=== PATIENT | male | born 1955 | race Caucasian/White ===

== ENCOUNTER → 2021-09-16 | Outpatient (CLI) | payer OTHER, SELFPAY ==
--- NOTE | 2021-09-16 16:52 | CT_ITS ---
STUDY: LOW DOSE CT LUNG CANCER SCREENING REASON FOR EXAM: Male, 66 years old. Current smoker, 1 pack per day x52 years, history of cough and hypertension RADIATION DOSAGE (If Supplied By Facility): CTDIvol = ( 3.02 ) mGy, DLP = ( 111.36 ) mGycm TECHNIQUE: No contrast was administered. Low dose technique was utilized (average mAS-38 and kVp 120). 1.25 mm axial source images with a slice interval of 1.25-mm were reconstructed in lung windows. 2.5 mm axial source images with a slice interval of 2.5-mm were reconstructed in lung windows. 5.0 mm axial source images with a slice interval of 5.0-mm were reconstructed in soft tissue windows. COMPARISON: None. FINDINGS: The lung windows show underlying emphysema with bleb formation in both lung bazzi. Nonspecific pleural thickening noted in both apices. 2 separate subpleural nodules noted in the lateral left lower lobe each measuring approximately 4 mm and are seen on image 216. There is a similar sized 4 mm subpleural nodule in the right lower lobe on axial image 180. There is a noncalcified 7.5 mm nodule in the right middle lobe on axial image 113. Further evaluation with PET/CT or tissue sampling recommended. Soft tissue windows show normal-appearing thyroid gland. There are scattered subcentimeter axillary and mediastinal lymph nodes, no suspicious bulky adenopathy noted. No pleural or pericardial effusions, there are calcified coronary vessels. Bony structures show degenerative change. Limited cuts through the upper abdomen do not show any suspicious abnormality. CT/Low Dose CT Lung Screening IMPRESSION: Lung-RADS category 4X - Chest CT with or without contrast, PET/CT and/or tissue sampling can be obtained depending on the probability of malignancy and comorbidities. IMPORTANT NOTES FOR USE: ACR Lung-RADS Version 1.1 Assessment Categories Release Date: 2018 Category: Coded 0-4 bases on nodule(s) with highest degree of suspicion. Negative screen is defined as categories 1 and 2; a positive screen is defined as categories 3 and 4. Category 3 and 4A nodules that are unchanged on interval CT should be coded as category 2, and individuals returned to screening in 12 months. Category 4X: Category 3 or 4 nodules with additional imaging findings that increase the suspicion of lung cancer, such as spiculation, GGN that doubles in size in 1 year, enlarged lymph notes, etc. Category Modifiers: S (significant finding unrelated to lung cancer) Electronically Signed: Tobias Diop MD at 8:12 EDT ,
--- NOTE | 2021-09-16 16:53 | CT_ITS ---
EXAM: CT NECK WITH INTRAVENOUS CONTRAST CLINICAL INDICATION: ENLARGED LYMPH NODE Technologist Notes ENLARGED LYMPH NODE LT SIDE OF NECK, AOI MARKED WITH BB, CURRENT SMOKER, MELANOMA ON BACK TECHNIQUE: Helically acquired images were obtained of the neck with intravenous contrast. This CT exam was performed using one or more of the following dose reduction techniques: automated exposure control, adjustment of the mA and/or kV according to patient size, and/or use of iterative reconstruction technique. This report was created using [employer] report [employer] technology. CONTRAST: IV 100mL Isovue-300 RADIATION DOSE: CTDIvol = 16.26 mGy, DLP = 901.83 mGy-cm COMPARISON: None. FINDINGS: NASOPHARYNX: Unremarkable. SUPRAHYOID NECK: Unremarkable. Oropharynx, oral cavity, parapharyngeal space and retropharyngeal space are unremarkable. INFRAHYOID NECK: Unremarkable. The larynx, hypopharynx and supraglottis are unremarkable. SUBMANDIBULAR/PAROTID GLANDS: At the level of the marker, there is a 22 mm enhancing nodule within the left parotid gland. It is difficult to exclude underlying mass (neoplasm) within the parotid gland. THYROID: Unremarkable. No enlarged or calcified nodules. SINUSES: There is sinus disease. BONES/JOINTS: Degenerative changes of the mandibular condyles. There are degenerative findings of the cervical spine. No acute fracture. SOFT TISSUES: Unremarkable. VASCULATURE: No acute findings. LYMPH NODES: Unremarkable. No lymphadenopathy. LUNG APICES: There are scattered blebs and bullae. This can be seen in pulmonary emphysema. CT/Soft Tissue Neck WITH Contrast IMPRESSION: At the level of the marker, there is a 22 mm enhancing nodule within the left parotid gland. It is difficult to exclude underlying mass (neoplasm) within the parotid gland. Electronically Signed: Joao Bajwa MD at 18:25 EDT ,
[2021-09-16 17:25] LABS: CREATININE FINGERSTICK < 0.9 mg/dL (0.70-1.30); EGFR FINGERSTICK > 60.0000 mL/min (>60)
== END | disposition home or self-care (01) ==
LOC: CT 16:50
PROVIDERS: PCP Nurse Practitioner Family; Referring Provider Nurse Practitioner Family; Visit Provider Nurse Practitioner Family
DX: R59.9 Enlarged lymph nodes, unspecified (principal); R05.9 Cough, unspecified; I10 Essential (primary) hypertension; Z87.891 Personal history of nicotine dependence
CPT/HCPCS: 70491; 71271; Q9967

== ENCOUNTER → 2021-09-24 | Outpatient (CLI) | payer OTHER, SELFPAY ==
--- NOTE | 2021-09-24 16:15 | PET_ITS ---
EXAMINATION: FDG PET/CT ? INDICATIONS: 66-year-old male with a history of pulmonary nodularity. ? COMPARISON EXAMINATION: ? INDEX LESION SIZE SUV INTERPRETATION Left lateral neck, level IIA 22.8 mm 11.0 Fulfills quantitative criteria for viable neoplasm with single point technique, correlation with histopathologic analysis may be indicated. ? TECHNIQUE: Following the intravenous administration of 13.32 mCi of F-18 deoxyglucose via the left antecubital fossa, multiplanar image acquisitions of the neck, chest, abdomen and pelvis to the level of the midthigh, obtained at one-hour post radiopharmaceutical administration reveal: ? SERUM GLUCOSE LEVEL:? 98?mg/dL HEIGHT:?? 70 inches? WEIGHT:?? 165 lbs ? FINDINGS: ? HEAD/NECK:? There is focal increased radiopharmaceutical concentration identified in the left lateral neck involving level IIA. The calculated maximum standard uptake value is 11.0. The maximal axial diameter of the metabolic, morphologic abnormality is 22.8 mm. ? The visualized portion of the cerebral cortical-subcortical structures demonstrate symmetric and preserved glucose metabolism. ? CHEST:? There is no quantitative scintigraphic evidence of abnormal increased glucose metabolism within the context of the bilateral hemithorax pulmonary parenchyma, right and left hemithorax at the pleural interface, mediastinal structures, and left-right thoracic perihilum. ? Pertinent chest CT findings are as follows: A noncalcified parenchymal density defined in the right mid anterior lung zone reveals no evidence of increased glucose metabolism. Extensive coronary arterial calcification is defined. Atherosclerotic calcification is noted in the thoracic aorta without aneurysm, dilatation. Right and left axillary soft tissue densities with fatty hilus are non-glucose avid. ? ABDOMEN/PELVIS:? Normal physiologic distribution of the radiopharmaceutical is identified in the hepatic (3.1) and splenic parenchyma, both renal units, urinary bladder, and visualized intestinal tract. ? Review of CT of the abdomen and pelvis reveals the following: Atherosclerotic calcification is defined in the abdominal aorta without evidence of aneurysm formation. Abdominal and pelvic arterial calcification is observed. Colonic diverticulosis is defined without evidence of diverticulitis. Bilateral inguinal soft tissue densities, the majority of which express fatty hilus, are non-glucose avid. Calcification is defined in the base of the prostate gland to the right of midline. ? SKELETAL:? An increase in glucose metabolism is identified in the 2nd lumbar vertebra to the left of the midline associated with osteophyte formation consistent with activated leukocytes associated with degenerative arthritis. No other scintigraphic abnormalities are defined. ? Additional degenerative changes defined in the thoracic and lumbar spine demonstrate no evidence of increased glucose metabolism. ? PET/PET/CT Tumor Base -Thigh Init IMPRESSION: 1. The increase in glucose metabolism identified in the left lateral neck may warrant histopathologic investigation secondary to the quantitative degree of uptake. 2. The non-calcified parenchymal density noted in the right lower lung, anteriorly demonstrates no evidence of increased glucose metabolism. 3.? Metabolic-morphologic stability may be ensured in the right lung abnormality with repeat FDG PET/CT imaging in 3-6 months, if clinically indicated. Electronic Signature Yony Ward D.O. Accurate Quantification of SUVs for this report are calculated using the exclusive [employer]. (U.S. Patent No. [id number] [id number]). Standardization and correction of the FDG SUV metric via [employer] technology allow for vendor non-specific objective quantitative examination comparison and optimization of the sensitivity and specificity of the FDG PET-CT examination. Electronically Signed: Yony Ward, at 19:28 EDT ,
== END | disposition home or self-care (01) ==
LOC: ONC 16:12
PROVIDERS: PCP Nurse Practitioner Family; Referring Provider Nurse Practitioner Family; Visit Provider Nurse Practitioner Family
DX: R91.1 Solitary pulmonary nodule (principal); C43.9 Malignant melanoma of skin, unspecified; F17.210 Nicotine dependence, cigarettes, uncomplicated; R93.89 Abnormal findings on diagnostic imaging of other specified body structures
CPT/HCPCS: 78815; A9552

== ENCOUNTER 2024-03-21 00:02 | Inpatient (IN) | payer OTHER, SELFPAY ==
[2024-03-21] VITALS (16 sets, daily range): BP systolic 111–132; BP diastolic 63–83; PULSE 76–102; RESP 15–26; TEMP 36.4–37.1; O2SAT 84–94; BMI 27.5
--- NOTE | 2024-03-21 00:47 | RAD_ITS ---
PROCEDURE: CHEST 1 VIEW (PORTABLE) REASON FOR EXAM: Pain. Injury. TECHNIQUE: Frontal view of the chest. COMPARISON: CT chest from 09/16/2021. FINDINGS: Cardiac size and pulmonary vasculature are within normal limits. No consolidation, pleural effusion, or pneumothorax is present. RAD/Chest 1 View (Portable) IMPRESSION: No acute cardiopulmonary process. Reading Location: [facility]
[2024-03-21 00:59] LABS: Absolute Lymphocyte Count 0.67 X10^3/uL (0.83-4.51); Absolute Neutrophil Count 5.8 X10^3/uL (2.0-7.7); Basophil# 0.05 X10^3/uL; Basophil% 0.7 % (0-1); Eosinophil# 0.01 X10^3/uL; Eosinophils% 0.1 % (0-5); Hemoglobin 15.2 g/dL (13.0-16.5); Lymphocyte # 0.67 X10^3/ul (0.83-4.51); Mean Corp Hgb Conc 33.8 g/dL (32-36); Mean Corpuscular Volume 85.7 fL (80-94); Mean Platelet Vol. 10.6 fl (6.2-12.0); Monocyte# 0.92 X10^3/uL; Monocyte% 12.3 % (0-10); NRBC Flagged by Analyzer 0 % (0-5); Neutrophil # 5.77 X10^3/uL (2.7-7.7); Neutrophil % 77.5 % (47-70); Platelet Count 233 K/mm3 (150-450); RBC Distribution Width CV 14.2 % (11.6-14.6); RBC Distribution Width SD 44.1 fl (35.1-43.9); Red Blood Count 5.25 M/mm3 (4.6-6.2); White Blood Count 7.5 K/mm3 (4.4-11.0)
[2024-03-21] MEDS: Albuterol 2.5 MG/3 ML VIAL.NEB. INHALATION ×2 (01:02→19:32)
[2024-03-21] MEDS: Ipratropium/Albuterol Sulfate 3 ML AMPUL.NEB INHALATION ×3 (01:02→14:45)
[2024-03-21] MEDS: Ondansetron 4 MG/2 ML Vial IV (01:11)
[2024-03-21] MEDS: Morphine 4 MG/ML Syringe IV (01:11)
[2024-03-21] MEDS: 0.9% Normal Saline (1000mL) 1,000 ML 999 ML IV (01:11)
[2024-03-21] MEDS: MethylPREDNISolone 125 MG/2 ML Vial IV (01:11)
[2024-03-21 01:28] LABS: Anion Gap 9 (5-15); BUN 22 mg/dL (7-18); BUN/Creat Ratio 17.2 RATIO (10-20); Calcium,Total 8.7 mg/dL (8.5-10.1); Chloride 104 mmol/L (98-107); Creatinine, Serum 1.28 mg/dL (0.70-1.30); EST Glomerular Filtration Rate 59 mL/min (>60); Est Glom Filt Rate - Afr Amer 72 mL/min (>60); Estimated Creatinine Clearance 56.24 ml/min; Glucose 133 mg/dL (74-106); Magnesium 1.9 mg/dL (1.6-2.6); Potassium 3.6 mmol/L (3.5-5.1); Sodium Level 137 mmol/L (136-145)
--- NOTE | 2024-03-21 01:29 | CPS ---
[0102] x1 Albuterol given to pt. in ER as well
--- NOTE | 2024-03-21 03:39 | PCM.HP.STD ---
HPI - General General Date of Admission: 03/21/24 Date of Service: 03/21/24 Chief Complaint: Dyspnea, coughing, wheezing. HPI Narrative The patient is a 68-year-old male with past medical history hypertension, hyperlipidemia, JUANY not using PAP therapy, COPD with ongoing tobacco use who presents to the [facility] ED on 03/21/24 with 2 days of progressive fever, chills, headache, fatigue, malaise, body aches, cough and dyspnea as well as wheezing progressively worsening prompting eventual ED evaluation to be cautious. He notes that he has a grandchild who is recently been ill with a similar viral illness. He continues to smoke approximately 1 pack/day cigarette tobacco usage. Workup in the ED included T98.7, heart rate 102, BP 131/77, respiratory rate 26, 88% on room air initially eventually desaturating down to 88% on 3 L improving to 92% on 4 L nasal cannula with most recent repeat vital signs T98.4 Oral, BP 115/83, respiratory rate 16, 92% on 4 L nasal cannula, CBC with WBC 7.5, hemoglobin 15.2, platelet 233 with lymphopenia, BMP with BUN/creatinine 22/1.28, GFR 59, glucose 133, magnesium 1.9, chest x-ray with no acute cardiopulmonary findings, rapid SARS COVID/influenza/RSV with positive influenza A. In the ED patient ministered 1 L normal saline, DuoNeb and albuterol therapies, Tamiflu 75 mg p.o. x 1, Zofran 4 mg IV x 1, morphine 4 mg IV x 1 and Solu-Medrol 125 mg IV x 1. [facility] Medical History (Updated 03/21/24 @ 04:[address] Lisbet Baker MD) Tobacco use Hyperlipidemia Hypertension Sleep apnea COPD (chronic obstructive pulmonary disease) Home Medications ?Medication ?Instructions ?Recorded ?Last Taken ?Type albuterol 90 mcg/actuation aerosol 90 mcg inhalation Q6H PRN 03/21/24 Unknown History inhaler aspirin 81 mg chewable tablet 1 tab PO DAILY 03/21/24 Unknown History budesonide 160 mcg-glycopyr 9 2 inh inhalation BID 03/21/24 Unknown History mcg-formot 4.8 mcg/actuation HFA inhaler (Breztri Aerosphere) guaifenesin 600 mg tablet, 600 mg PO BID PRN cough 03/21/24 Unknown History extended release 12 hr losartan 100 mg tablet (Cozaar) 100 mg PO DAILY 03/21/24 Unknown History omeprazole 20 mg capsule,delayed 20 mg PO DAILY 03/21/24 Unknown History release simvastatin 20 mg tablet 20 mg PO QHS 03/21/24 Unknown History Allergy/AdvReac Type Severity Reaction Status Date / Time No Known Allergies Allergy Verified 03/21/24 01:16 Family History (Updated 03/21/24 @ 04:[address] Lisbet Baker MD) Mother Diabetes Father Alcoholic cirrhosis of liver Alcoholism Surgical History (Updated 03/21/24 @ 04:[address] Lisbet Baker MD) History of skin surgery History of tonsillectomy and adenoidectomy Social History (Updated 03/21/24 @ 04:[address] Lisbet Baker MD) household members: significant other Smoking Status: Current every day smoker tobacco type: cigarettes Smoking packs per day: 1 Smoking cigarettes per day: 20.0 alcohol intake: never substance use type: does not use ROS ROS Narrative Admission Review of Systems: CONSTITUTIONAL: No weight loss, + fever, chills, weakness or fatigue. HEENT: + Headache, congestion, rhinorrhea. Eyes: No visual loss, blurred vision, double vision or yellow sclerae. Ears, Nose, Throat: No hearing loss, sneezing, sore throat. SKIN: No rash or itching, lesions, wounds. CARDIOVASCULAR: No chest pain, chest pressure or chest discomfort, palpitations, edema, orthopnea, syncopal events. RESPIRATORY: + Dyspnea, cough without marked sputum production, wheezing. No hemoptysis. GASTROINTESTINAL: + Decreased appetite/anorexia. No nausea, vomiting or diarrhea, abdominal pain, melena, BRBPR. GENITOURINARY: No dysuria, frequency, urgency or retention. NEUROLOGICAL: + Headache. No dizziness, syncope, paralysis, ataxia, numbness or tingling in the extremities, focal weakness, change in bowel or bladder control, seizure. MUSCULOSKELETAL: + muscle, back pain, joint pain or stiffness. HEMATOLOGIC: No anemia, bleeding or bruising. LYMPHATICS: No enlarged nodes. No history of splenectomy. PSYCHIATRIC: No history of depression or anxiety. ENDOCRINOLOGIC: No reports of sweating, cold or heat intolerance. No polyuria or polydipsia. ALLERGIES: + History of allergic rhinitis. Vital Signs Vital Signs Vital Signs: 03/21/24 00:09 03/21/24 00:13 03/21/24 00:15 Temperature 98.7 F Temperature Source Oral Pulse Rate 102 H Respiratory Rate 26 H Respiratory Effort Short of Breath Labored Respiratory Depth Normal Respiratory Pattern Tachypnea Blood Pressure 131/77 H Blood Pressure Mean 95 Pulse Ox 88 91 Oxygen Delivery Method Room Air Nasal Cannula Nasal Cannula Oxygen Flow Rate (L/min) 3 3 03/21/24 01:02 03/21/24 02:02 03/21/24 02:49 Temperature Temperature Source Pulse Rate 96 96 96 Respiratory Rate 20 H 16 16 Respiratory Effort Respiratory Depth Respiratory Pattern Normal Blood Pressure 115/83 H Blood Pressure Mean 93 Pulse Ox 84 88 Oxygen Delivery Method Room Air Nasal Cannula Oxygen Flow Rate (L/min) 3 03/21/24 02:51 03/21/24 02:51 03/21/24 02:52 Temperature 98.4 F Temperature Source Oral Pulse Rate Respiratory Rate 16 Respiratory Effort Respiratory Depth Respiratory Pattern Blood Pressure Blood Pressure Mean Pulse Ox 90 92 Oxygen Delivery Method Nasal Cannula Nasal Cannula Oxygen Flow Rate (L/min) 3 4 Weight Weight: 191 lb 12.835 oz Body Mass Index (BMI) 27.5 Physical Exam Narrative Physical Examination: General: Awake, alert, oriented x 3 and cooperative, seated upright in the ED bed, fatigued and ill-appearing, notes feeling mildly improved since initial ED arrival with interventions. Skin: Normal color, normal turgor, no icterus, no cyanosis. HEENT: AT/NC, EOMI, PERRLA, moderately dry MM, no carotid bruits or JVD noted. Lungs: Significantly diffusely diminished, greater bases, mildly increased respiratory rate but no distress, mildly coarse with end expiratory wheezing. Heart: Regular rate and rhythm; no gallop, rub audible. Abdomen: Soft, NTTP, ND, hyperactive BS, no appreciated HSM. Extremities: No cyanosis, clubbing, or edema. Neurological: Patient awake, alert, oriented as noted, cognitive function intact; pupils equally reactive to light and accommodation, cranial nerves grossly normal, moving all 4 extremities, no focal deficits, strength moderately to severely globally decreased. Psychiatric: Affect appears flat, fatigued, ill-appearing, no acute evidence of depressive or anxiety feelings. Results Lab / Micro Data 03/21/24 00:15 03/21/24 00:15 Labs: Laboratory Results - last 24 hr 03/21/24 00:15: WBC 7.5, RBC 5.25, Hgb 15.2, Hct 45.0, MCV 85.7, MCH 29.0, MCHC 33.8, RDW Std Deviation 44.1 H, RDW Coeff of Armand 14.2, Plt Count 233, MPV 10.6, Immature Gran % (Auto) 0.400, Neut % (Auto) 77.5 H, Lymph % (Auto) 9.0 L, [place] % (Auto) 12.3 H, Eos % (Auto) 0.1, Baso % (Auto) 0.7, Absolute Neuts (auto) 5.8, Absolute Lymphs (auto) 0.67 L, Nucleated RBC % 0, Sodium 137, Potassium 3.6, Chloride 104, Carbon Dioxide 24.0, Anion Gap 9, BUN 22 H, Creatinine 1.28, Estim Creat Clear Calc 56.24, Est GFR (MDRD) Af Amer 72, Est GFR (MDRD) Non-Af 59 L, BUN/Creatinine Ratio 17.2, Glucose 133 H, Calcium 8.7, Magnesium 1.9 Micro: Microbiology 03/21/24 00:19 Mucosa - Nose SARS-CoV-2, Influenza & RSV (PCR) - Final Influenzae A Imaging Radiology Impression Chest X-Ray 03/21/24 00:47 IMPRESSION: No acute cardiopulmonary process. Reading Location: [facility] Assessment & Plan Assessment/Plan (1) Hypoxia: (2) Influenza A: PLAN: Plan The patient is a 68-year-old male with past medical history hypertension, hyperlipidemia, JUANY not using PAP therapy, COPD with ongoing tobacco use who presents to the [facility] ED on 04/11 with 2 days of progressive fatigue, malaise, cough and dyspnea as well as wheezing progressively worsening prompting eventual ED evaluation to be cautious. #1. Acute hypoxia secondary to acute influenza A complicated by acute on chronic COPD exacerbation: Will admit to [facility], maintain on oxygen with wean as tolerated to room air, continue ATC duonebs, PRN albuterol, maintain on Tamiflu and IV Solu-Medrol, HOB, IS parameters w/ pending sputum cultures, full respiratory viral panel, procalcitonin. PT/OT/case management consultation for discharge planning. #2. Possible Chronic Kidney Disease Stage III per GFR trending but uncertain as no comparison labs: Admission BUN/Cr 22/1.28, GFR 59 but no comparison labs, will continue to trend to elucidate chronicity. #3. Hyperglycemia, mild: Admission glucose 133, possibly stress response, continue to trend and may further investigate if rises/remains elevated. #4. Hypertension: Continue home regimen including losartan, PRN hydralazine. #5. Tobacco Abuse: Encouraged cessation, inpatient consultation per RT, NR if desired. #6. Hyperlipidemia: Wilkening patient on statin therapy. #7. JUANY: Not using PAP therapy. #7. DVT prophylaxis: Lovenox. #8. CODE status: Patient does not have healthcare power of criminal attorney or living will in place but notes his significant other would be his medical decision-maker if necessary. Discussed CODE status at length including difference between FULL code, DNR-CCA and DNR-CC status. Following discussions about the differences in these status, requested Full Code status. Advanced Care Planning Face to Face Time: 16 minutes. Charges/Coding Visit Charges Inpatient E&M: 20486 Init Hosp L3 Procedures Hospitalists Procedures: 27624 Advncd Care Plan 30 Min
[2024-03-21] MEDS: Oseltamivir Phosphate 75 MG Capsule PO ×3 (04:04→23:11)
--- NOTE | 2024-03-21 04:08 | EX.ED.DYSGE1 ---
HPI History of Present Illness Chief Complaint: Cough Informant: patient and EMS Narrative Narrative: Patient is a 68-year-old male with past medical history of hypertension hyperlipidemia and COPD. He states he does not typically require oxygen at baseline. He states over the last 24 hours he has had increased congestion cough headache fatigue muscle aches and shortness of breath. He does report sick contacts at home with similar symptoms. As the shortness of breath has worsened throughout the day he was concern for potential infection and therefore EMS was called to bring him in for evaluation [facility] Medical History (Updated 03/21/24 @ 04:[address] Attila Singh, DO) Tobacco use Hyperlipidemia Hypertension Sleep apnea COPD (chronic obstructive pulmonary disease) Home Medications ?Medication ?Instructions ?Recorded ?Last Taken ?Type albuterol 90 mcg/actuation aerosol 90 mcg inhalation Q6H PRN 03/21/24 Unknown History inhaler aspirin 81 mg chewable tablet 1 tab PO DAILY 03/21/24 Unknown History budesonide 160 mcg-glycopyr 9 2 inh inhalation BID 03/21/24 Unknown History mcg-formot 4.8 mcg/actuation HFA inhaler (Breztri Aerosphere) guaifenesin 600 mg tablet, 600 mg PO BID PRN cough 03/21/24 Unknown History extended release 12 hr losartan 100 mg tablet (Cozaar) 100 mg PO DAILY 03/21/24 Unknown History omeprazole 20 mg capsule,delayed 20 mg PO DAILY 03/21/24 Unknown History release simvastatin 20 mg tablet 20 mg PO QHS 03/21/24 Unknown History Allergy/AdvReac Type Severity Reaction Status Date / Time No Known Allergies Allergy Verified 03/21/24 01:16 Family History (Updated 03/21/24 @ 04:[address] Lisbet Baker MD) Mother Diabetes Father Alcoholic cirrhosis of liver Alcoholism Surgical History (Updated 03/21/24 @ 04:[address] Lisbet Baker MD) History of skin surgery History of tonsillectomy and adenoidectomy Social History (Updated 03/21/24 @ 04:[address] Lisbet Baker MD) household members: significant other Smoking Status: Current every day smoker tobacco type: cigarettes Smoking packs per day: 1 Smoking cigarettes per day: 20.0 alcohol intake: never substance use type: does not use ROS ROS ED Constitutional Constitutional ED: Reports chills, fever(s) and subjective Eyes Eyes: Denies change in vision ENT ENT ED: Reports rhinorrhea and sore throat Cardiovascular Cardiovascular: Denies chest pain Respiratory/Chest Respiratory/Chest: Reports cough and dyspnea Gastrointestinal Gastrointestinal: Reports nausea; Denies abdominal pain, diarrhea or vomiting Genitourinary Genitourinary ED: Denies dysuria Musculoskeletal Musculoskeletal: Reports myalgias Integumentary Denies rash Neurologic Neurologic: Reports headache(s) and weakness Hematologic/Lymphatic Hematologic/Lymphatic: Denies easy bleeding or easy bruising Allergic/Immunologic Allergic/Immunologic ED: Denies mouth swelling or tongue swelling EXAM Physical Exam Const Vital Signs: 03/21/24 00:09 03/21/24 00:13 03/21/24 00:15 Temperature 98.7 F Temperature Source Oral Pulse Rate 102 H Respiratory Rate 26 H Respiratory Effort Short of Breath Labored Respiratory Depth Normal Respiratory Pattern Tachypnea Blood Pressure 131/77 H Blood Pressure Mean 95 Pulse Ox 88 91 Oxygen Delivery Method Room Air Nasal Cannula Nasal Cannula Oxygen Flow Rate (L/min) 3 3 03/21/24 01:02 03/21/24 02:02 03/21/24 02:49 Temperature Temperature Source Pulse Rate 96 96 96 Respiratory Rate 20 H 16 16 Respiratory Effort Respiratory Depth Respiratory Pattern Normal Blood Pressure 115/83 H Blood Pressure Mean 93 Pulse Ox 84 88 Oxygen Delivery Method Room Air Nasal Cannula Oxygen Flow Rate (L/min) 3 03/21/24 02:51 03/21/24 02:51 03/21/24 02:52 Temperature 98.4 F Temperature Source Oral Pulse Rate Respiratory Rate 16 Respiratory Effort Respiratory Depth Respiratory Pattern Blood Pressure Blood Pressure Mean Pulse Ox 90 92 Oxygen Delivery Method Nasal Cannula Nasal Cannula Oxygen Flow Rate (L/min) 3 4 Positive well nourished and well developed General Appearance ED: well developed; Negative for pallor HEENT HEENT Narrative: Nasal mucosa is hyperemic and boggy There is cobblestoning noted in the posterior pharynx consistent with sinus drainage without airway edema or compromise Eyes PERRL and EOMs intact bilaterally General Eye ED: Negative for scleral icterus Neck supple and no JVD Neck Narrative: No nuchal rigidity or meningeal signs Chest Wall palpation of chest normal Resp Resp Narrative: Patient is tachypneic with slight accessory muscle use Breath sounds are diminished throughout with diffuse inspiratory and expiratory wheeze and rhonchi in the bilateral bases Cardio regular rate and regular rhythm Rate: tachycardic GI normal to inspection, nondistended, normoactive bowel sounds, non-tender, non-distended and no masses Auscultation: normoactive bowel sounds Palpation: soft Extremity normal to inspection Extremity Narrative: No asymmetric edema no pitting edema negative Homans' sign bilaterally Neuro oriented x3, CN's II-XII intact bilaterally and no sensory deficits noted Sensorium / Orientation: alert Motor Exam: strength 5/5 throughout Psych mental status grossly normal Skin no rashes or lesions noted General Skin Exam: Negative for jaundice or pallor MDM MDM MDM Narrative Medical decision making narrative: Patient arrived to the ER with increased work of breathing and satting roughly 88% on room air at rest. He has a history of COPD but denies any need for supplemental oxygen. His history and exam is concerning for viral infection such as COVID versus influenza versus RSV. There is also concern for pneumonia versus pneumothorax versus pleural effusion. Patient blood work was obtained and shows no sign of acute blood loss anemia or acute kidney injury or severe electrolyte abnormality. Chest x-ray revealed no acute pathology. Viral swab was positive for influenza which correlates with his history and exposure. At rest his pulse ox dropped to 88% on room air and with ambulation he desatted to 79% on room air. His mild desaturation at rest with history of COPD and smoking is not extremely concerning but the fact that he drops with minimal ambulation to 79% and takes multiple minutes to recover is worrisome and as he is early in the disease process this will most likely worsen before it improves. Therefore I do not feel he is safe for discharge home and discussed the case with the hospitalist who agrees to accept the patient for admission at this time History & Record Review Discussion w/independent historian: EMS personnel, Patient and Family Lab Data Attestation: I reviewed the patient's lab results. Labs: Laboratory Results - last 24 hr 03/21/24 00:15 WBC 7.5 RBC 5.25 Hgb 15.2 Hct 45.0 MCV 85.7 MCH 29.0 MCHC 33.8 RDW Std Deviation 44.1 H RDW Coeff of Armand 14.2 Plt Count 233 MPV 10.6 Immature Gran % (Auto) 0.400 Neut % (Auto) 77.5 H Lymph % (Auto) 9.0 L [place] % (Auto) 12.3 H Eos % (Auto) 0.1 Baso % (Auto) 0.7 Absolute Neuts (auto) 5.8 Absolute Lymphs (auto) 0.67 L Nucleated RBC % 0 Sodium 137 Potassium 3.6 Chloride 104 Carbon Dioxide 24.0 Anion Gap 9 BUN 22 H Creatinine 1.28 Estim Creat Clear Calc 56.24 Est GFR (MDRD) Af Amer 72 Est GFR (MDRD) Non-Af 59 L BUN/Creatinine Ratio 17.2 Glucose 133 H Calcium 8.7 Magnesium 1.9 Radiography Diagnostic Testing: Clinical Impression(s) from Imaging Studies Chest X-Ray 03/21/24 00:47 IMPRESSION: No acute cardiopulmonary process. Reading Location: [facility] Chest x-ray as interpreted by the emergency medicine physician reveals no acute infiltrate pneumothorax or pleural effusion Management Discussion w/another healthcare provider: Hospitalist Discharge Plan Dx/Rx/DC Orders Clinical Impression: Hypoxia, Influenza A, COPD (chronic obstructive pulmonary disease), Hypertension, Hyperlipidemia Disposition Disposition: Acute Care Hospital [facility]
[2024-03-21] MEDS: 0.9% Normal Saline (1000mL) 1,000 ML 100 ML IV (09:36)
[2024-03-21] MEDS: Aspirin 81 MG TAB.CHEW PO (09:37)
[2024-03-21] MEDS: Losartan Potassium 100 MG Tablet PO (09:39)
[2024-03-21] MEDS: Pantoprazole Sodium 20 MG Tablet PO (09:39)
[2024-03-21] MEDS: Enoxaparin 40 MG/0.4 ML Syringe SC (09:40)
[2024-03-21 10:08] LABS: Procalcitonin 0.13 ng/mL (0.00-0.09)
--- NOTE | 2024-03-21 12:01 | PN_ITS ---
Subjective Subjective Patient seen and examined. He still complains of shortness of breath. He is wheezing. He admits to still smoking a pack daily of cigarettes. He is currently down to 3 L of oxygen from 4 L. Objective Data Objective Data Vital Signs: Vital Signs Temp Pulse Resp BP Pulse Ox O2 Del Method O2 Flow Rate 98.4 F 86 22 H 124/77 H 94 Nasal Cannula 3 03/21/24 06:48 03/21/24 10:16 03/21/24 10:16 03/21/24 06:48 03/21/24 10:16 03/21/24 10:16 03/21/24 10:16 Oxygen Flow Rate (L/min) 3 Oxygen Delivery Method Nasal Cannula Weight: 191 lb 12.835 oz Body Mass Index (BMI) 27.5 Intake & Output: Intake and Output for Last 24 Hours 03/19/24 03/20/24 03/21/24 23:59 23:59 23:59 Intake Total 1300 / 1300 Output Total 600 / 600 Balance 700 / 700 Lab / Micro Data 03/21/24 00:15 03/21/24 00:15 Labs: Laboratory Results - last 24 hr 03/21/24 00:15: WBC 7.5, RBC 5.25, Hgb 15.2, Hct 45.0, MCV 85.7, MCH 29.0, MCHC 33.8, RDW Std Deviation 44.1 H, RDW Coeff of Armand 14.2, Plt Count 233, MPV 10.6, Immature Gran % (Auto) 0.400, Neut % (Auto) 77.5 H, Lymph % (Auto) 9.0 L, [place] % (Auto) 12.3 H, Eos % (Auto) 0.1, Baso % (Auto) 0.7, Absolute Neuts (auto) 5.8, A bsolute Lymphs (auto) 0.67 L, Nucleated RBC % 0, Sodium 137, Potassium 3.6, Chloride 104, Carbon Dioxide 24.0, Anion Gap 9, BUN 22 H, Creatinine 1.28, Estim Creat Clear Calc 56.24, Est GFR (MDRD) Af Amer 72, Est GFR (MDRD) Non-Af 59 L, BUN/Creatinine Ratio 17.2, Glucose 133 H, Calcium 8.7, Magnesium 1.9 03/21/24 04:51: Procalcitonin 0.13 H Micro: Microbiology 03/21/24 04:50 Mucosa - Nose Respiratory Panel (PCR) - Final Influenza A (Subtype H3) 03/21/24 00:19 Mucosa - Nose SARS-CoV-2, Influenza & RSV (PCR) - Final Influenzae A Radiography Diagnostic Testing: Radiology Impression Chest X-Ray 03/21/24 00:47 IMPRESSION: No acute cardiopulmonary process. Reading Location: [facility] Physical Exam Const alert, oriented x3, no apparent distress and well nourished General Appearance: cooperative and well developed HEENT normocephalic, head/scalp atraumatic, moist oral mucous membranes and oropharynx normal Eyes PERRL and EOMs intact bilaterally Neck supple and no JVD Lymph Lymphatic: no lymphadenopathy noted and no lymphedema noted Resp Resp Narrative: diminished breath sounds bibasally, few bilateral crackles. No wheezing. On 3L of oxygen. Cardio regular rate, regular rhythm, S1 normal heart sound, S2 normal heart sound and no murmurs GI normal to inspection, nondistended, normoactive bowel sounds, soft to palpation, non-tender and non-distended Extremity normal capillary refill, no clubbing, cyanosis or edema and no calf tenderness General Extremity: no tenderness to palpation of joints or extremities Skin General Skin Exam: no breakdown Neuro CN's II-XII intact bilaterally, no focal motor deficits and no sensory deficits noted Motor Exam: strength 5/5 throughout and general weakness Psych thought process normal and cooperative Appearance: appropriate Assessment & Plan Assessment/Plan (1) Influenza A: (2) Hypoxia: PLAN: Plan #Acute hypoxia due to influenza A infection * Patient was on 4 L of oxygen. Currently on 3 L. On breathing treatments bronchodilators. * On Tamiflu. Also on IV Solu-Medrol due to concerns for COPD exacerbation. Titrate oxygen to maintain saturation above 90%. * #Acute COPD exacerbation: As above #Hypertension: On losartan. IV hydralazine as needed. #Nicotine dependence: Counseled to quit. Nicotine patch 21 g daily as needed #Hyperlipidemia: On statin DVT prophylaxis: Lovenox Charges/Coding Visit Charges Inpatient E&M: 31749 Subs Hosp L2
--- NOTE | 2024-03-21 16:39 | CASEMGMT ---
RN PATRICIA Assessment Face to Face with patient for initial transition planning/care coordination assessment. RN PATRICIA introduced self and role at [facility], pt voices understanding. Pt is A&Ox4 and is resting comfortably in bed and is calm. Care providers, pharmacy, and demographics verified. Admitting dx: Hypoxia, Flu A LACE Strata: 1 PCP: [facility] [place] Specialists: Dermatology and Pulmonology through the [place] Preferred Pharmacy: [facility] at time of DC. Pt states that he normally has his medications sent via Mail through the [place] Insurance: [place], [facility] Prescription Benefit: Yes, [place] LNOK: Shannan Briceño (Friend) Living Arrangements: Pt lives with his friend in a single story home with 4 steps to enter ADLs/IADLs: Reports ind Transportation: Self, friend. Denies concerns DME: BP Machine. Pulse ox. Cane. FWW. Pt is currently on additional oxygen and may qualify for new home oxygen needs. This RN CM contacted from [facility] to see if [employer] is in-network with [facility]. Awaiting return response. Pt states that he would prefer to go through [employer] if they are in-network. If not, CM to follow for potentially another DME company. New O2 through the [facility] is another option, pt is aware. However, pt smoking flags as a hazard regarding home O2. CM to follow. HHC/SNF: Denies Hx or needs Smoking: Pt states that he smokes 1 PPD of cigarettes Pt?s goal: Return home Plan: Home, follow for oxygen needs. There is no 6-click score or therapy ordered at this time. However, pt states that he is completely independent and denies HH, OP Tx, or CCN needs. Pt states that he feels safe returning home with his friend once he is medically ready. Pt denies further questions at this time. CM to follow. Leny Nobles RN, CM
--- NOTE | 2024-03-21 19:35 | CPS ---
PRN TX given, [employer] out of stock. INFORMATION SYSTEMS SECURITY OFFICER called pharmacy for refill
[2024-03-21] MEDS: Atorvastatin Calcium 10 MG Tablet PO (23:10)
[2024-03-21] MEDS: 0.9% Saline Lock 10 ML Syringe IV (23:13)
[2024-03-22] VITALS (10 sets, daily range): BP systolic 111–125; BP diastolic 56–71; PULSE 61–77; RESP 18–24; TEMP 36.4–36.6; O2SAT 93–94; BMI 27.3
[2024-03-22] MEDS: 0.9% Saline Lock 10 ML Syringe IV ×3 (05:48→20:25)
[2024-03-22 06:25] LABS: Absolute Lymphocyte Count 0.58 X10^3/uL (0.83-4.51); Basophil# 0.01 X10^3/uL; Basophil% 0.1 % (0-1); Hematocrit 43.4 % (40-54); Hemoglobin 13.8 g/dL (13.0-16.5); Lymphocyte # 0.58 X10^3/ul (0.83-4.51); Lymphocyte % 5.2 % (19-41); Mean Corp Hgb Conc 31.8 g/dL (32-36); Mean Corpuscular Hgb 28.5 pg (27.0-32.0); Mean Corpuscular Volume 89.7 fL (80-94); Mean Platelet Vol. 10.8 fl (6.2-12.0); Monocyte# 0.49 X10^3/uL; Monocyte% 4.4 % (0-10); NRBC Flagged by Analyzer 0 % (0-5); Neutrophil # 10.02 X10^3/uL (2.7-7.7); Neutrophil % 89.8 % (47-70); POSITIVE DIFFERENTIAL YES; Platelet Count 220 K/mm3 (150-450); RBC Distribution Width CV 14.2 % (11.6-14.6); RBC Distribution Width SD 46.1 fl (35.1-43.9); Red Blood Count 4.84 M/mm3 (4.6-6.2); White Blood Count 11.2 K/mm3 (4.4-11.0)
[2024-03-22 06:51] LABS: ALB/GLOB Ratio 0.8 RATIO (0.9-2.4); AST(SGOT) 29 U/L (15-37); Alanine Aminotransfer ALT/SGPT 47 U/L (16-61); Albumin, Serum 3.1 g/dL (3.2-5.0); Alkaline Phosphatase 61 U/L (45-117); Anion Gap 7 (5-15); BUN 23 mg/dL (7-18); Calcium,Total 8.9 mg/dL (8.5-10.1); Chloride 107 mmol/L (98-107); Creatinine, Serum 1.15 mg/dL (0.70-1.30); EST Glomerular Filtration Rate 67 mL/min (>60); Est Glom Filt Rate - Afr Amer 81 mL/min (>60); Globulin 3.7 g/dL (2.2-4.2); Glucose 164 mg/dL (74-106); Potassium 4.6 mmol/L (3.5-5.1); Protein, Total 6.8 g/dL (6.4-8.2); Sodium Level 138 mmol/L (136-145)
[2024-03-22] MEDS: Aspirin 81 MG TAB.CHEW PO (09:18)
[2024-03-22] MEDS: Enoxaparin 40 MG/0.4 ML Syringe SC (09:19)
[2024-03-22] MEDS: Oseltamivir Phosphate 75 MG Capsule PO ×2 (09:19→20:24)
[2024-03-22] MEDS: Losartan Potassium 100 MG Tablet PO (09:19)
[2024-03-22] MEDS: Pantoprazole Sodium 20 MG Tablet PO (09:19)
[2024-03-22] MEDS: Ipratropium/Albuterol Sulfate 3 ML AMPUL.NEB INHALATION ×2 (10:16→19:05)
--- NOTE | 2024-03-22 13:04 | CASEMGMT ---
Addendum entered by Radha Nobles 03/22/24 16:05: Pt has finished signing the VA paperwork and states that he is willing to quit smoking. Paperwork placed in pt chart for further signing by the MD. CM to follow. Original Note: from [facility] [place] states that they are in-network with the pt's insurance. MIKE CM to pt room at this time. Pt notified that [employer] is in-network with the pt's [facility] insurance plan. However, pt states that he now prefers to go through the [place] for new oxygen setup. TC to [facility] [employer] [facility] ([place] contracted DME company) at this time. CSS notified that this pt is likely to DC tomorrow with new home oxygen equipment. CSS states that they will be able to provide same day set up as long as the order is sent before 11am. Pt RN notified and to pass long for oxygen qualification documentation to be done as early as possible tomorrow morning. This RN CM provided the pt with the required VA O2 paperwork for the to sign. This paperwork includes information about smoking and potential O2 hazards. At this time, the pt states that he is willing to quit smoking to be able to have home oxygen and use it safely. Pt is currently reviewing and signing the paperwork. CM to follow.
--- NOTE | 2024-03-22 15:42 | PN_ITS ---
Subjective Subjective Patient seen and examined. He had just finished receiving breathing treatments. He said he felt better. He is down to 2L of oxygen. Review of systems is otherwise negative. He has remained hemodynamically stable. Objective Data Objective Data Vital Signs: Vital Signs Temp Pulse Resp BP Pulse Ox O2 Del Method O2 Flow Rate 97.8 F 64 18 118/71 94 Nasal Cannula 2 03/22/24 14:00 03/22/24 14:00 03/22/24 14:00 03/22/24 14:00 03/22/24 15:11 03/22/24 15:11 03/22/24 15:11 Oxygen Flow Rate (L/min) 2 Oxygen Delivery Method Nasal Cannula Weight: 190 lb 4.143 oz Body Mass Index (BMI) 27.3 Intake & Output: Intake and Output for Last 24 Hours 03/20/24 03/21/24 03/22/24 23:59 23:59 23:59 Intake Total 3220 / 3220 500 / 500 Output Total 600 / 600 Balance 2620 / 2620 500 / 500 Lab / Micro Data 03/22/24 04:57 03/22/24 04:57 Labs: Laboratory Results - last 24 hr 03/22/24 04:57: WBC 11.2 H, RBC 4.84, Hgb 13.8, Hct 43.4, MCV 89.7, MCH 28.5, M CHC 31.8 L D, RDW Std Deviation 46.1 H, RDW Coeff of Armand 14.2, Plt Count 220, MPV 10.8, Immature Gran % (Auto) 0.500, Neut % (Auto) 89.8 H, Lymph % (Auto) 5.2 L, [place] % (Auto) 4.4, Eos % (Auto) 0.0, Baso % (Auto) 0.1, Absolute Neuts (auto) 10.0 H, Absolute Lymphs (auto) 0.58 L, Nucleated RBC % 0, Sodium 138, Potassium 4.6, Chloride 107, Carbon Dioxide 24.0, Anion Gap 7, BUN 23 H, Creatinine 1.15, Estim Creat Clear Calc 62.60, Est GFR (MDRD) Af Amer 81, Est GFR (MDRD) Non-Af 67, BUN/Creatinine Ratio 20.0, Glucose 164 H, Calcium 8.9, Total Bilirubin 0.50, AST 29, ALT 47, Alkaline Phosphatase 61, Total Protein 6.8, Albumin 3.1 L, Globulin 3.7, Albumin/Globulin Ratio 0.8 L Micro: Microbiology 03/21/24 10:17 Sputum, Expectorated/Coughed Gram Stain - Final 03/21/24 10:17 Sputum, Expectorated/Coughed Respiratory Culture - Final 03/21/24 04:50 Mucosa - Nose Respiratory Panel (PCR) - Final Influenza A (Subtype H3) 03/21/24 00:19 Mucosa - Nose SARS-CoV-2, Influenza & RSV (PCR) - Final Influenzae A Physical Exam Const alert, oriented x3, no apparent distress and well nourished General Appearance: cooperative and well developed HEENT normocephalic, head/scalp atraumatic, moist oral mucous membranes and oropharynx normal Eyes PERRL and EOMs intact bilaterally Neck supple and no JVD Lymph Lymphatic: no lymphadenopathy noted and no lymphedema noted Resp Resp Narrative: diminished breath sounds bibasally, few bilateral crackles. No wheezing. On2 3L of oxygen. Cardio regular rate, regular rhythm, S1 normal heart sound, S2 normal heart sound and no murmurs GI normal to inspection, nondistended, normoactive bowel sounds, soft to palpation, non-tender and non-distended Extremity normal capillary refill, no clubbing, cyanosis or edema and no calf tenderness General Extremity: no tenderness to palpation of joints or extremities Skin General Skin Exam: no breakdown Neuro CN's II-XII intact bilaterally, no focal motor deficits and no sensory deficits noted Motor Exam: strength 5/5 throughout and general weakness Psych thought process normal and cooperative Appearance: appropriate Assessment & Plan Assessment/Plan (1) Influenza A: (2) Hypoxia: PLAN: Plan #Acute hypoxia due to influenza A infection * Patient now on 2L of oxygen On breathing treatments bronchodilators. * On Tamiflu. Also on IV Solu-Medrol due to concerns for COPD exacerbation. * Titrate oxygen to maintain saturation above 90%. * #Acute COPD exacerbation: As above #Hypertension: On losartan. IV hydralazine as needed. #Nicotine dependence: Counseled to quit. Nicotine patch 21 g daily as needed #Hyperlipidemia: On statin DVT prophylaxis: Lovenox Disposition: Anticipate DC by tomorrow Charges/Coding Visit Charges Inpatient E&M: 01069 Subs Hosp L2
[2024-03-22] MEDS: Atorvastatin Calcium 10 MG Tablet PO (20:24)
[2024-03-23] VITALS (11 sets, daily range): BP systolic 104–132; BP diastolic 68–76; PULSE 63–88; RESP 18–22; TEMP 36.3–36.4; O2SAT 86–95; BMI 27.1
[2024-03-23] MEDS: 0.9% Saline Lock 10 ML Syringe IV ×2 (05:14→21:10)
[2024-03-23 08:35] LABS: Absolute Lymphocyte Count 0.82 X10^3/uL (0.83-4.51); Absolute Neutrophil Count 15.2 X10^3/uL (2.0-7.7); Basophil# 0.02 X10^3/uL; Basophil% 0.1 % (0-1); Eosinophil# 0.02 X10^3/uL; Eosinophils% 0.1 % (0-5); Hematocrit 47.6 % (40-54); Hemoglobin 15.3 g/dL (13.0-16.5); Lymphocyte # 0.82 X10^3/ul (0.83-4.51); Lymphocyte % 4.9 % (19-41); Mean Corp Hgb Conc 32.1 g/dL (32-36); Mean Corpuscular Hgb 28.3 pg (27.0-32.0); Mean Corpuscular Volume 88.1 fL (80-94); Monocyte# 0.68 X10^3/uL; Monocyte% 4.1 % (0-10); NRBC Flagged by Analyzer 0 % (0-5); Neutrophil # 15.15 X10^3/uL (2.7-7.7); Neutrophil % 90.2 % (47-70); Platelet Count 252 K/mm3 (150-450); RBC Distribution Width CV 14.2 % (11.6-14.6); RBC Distribution Width SD 45.2 fl (35.1-43.9); White Blood Count 16.8 K/mm3 (4.4-11.0)
[2024-03-23] MEDS: Albuterol 2.5 MG/3 ML VIAL.NEB. INHALATION (08:44)
[2024-03-23] MEDS: Aspirin 81 MG TAB.CHEW PO (08:52)
[2024-03-23] MEDS: BENZOCAINE/MENTHOL 1 LOZENGE MUCOUS MEM (08:52)
[2024-03-23] MEDS: Pantoprazole Sodium 20 MG Tablet PO (08:52)
[2024-03-23] MEDS: Oseltamivir Phosphate 75 MG Capsule PO ×2 (08:53→21:09)
[2024-03-23] MEDS: Enoxaparin 40 MG/0.4 ML Syringe SC (08:53)
[2024-03-23] MEDS: Losartan Potassium 100 MG Tablet PO (08:53)
[2024-03-23] MEDS: guaiFENesin 10 ML UDC (200MG/10ML) PO ×2 (08:54→13:33)
[2024-03-23 09:06] LABS: Anion Gap 7 (5-15); BUN 24 mg/dL (7-18); Calcium,Total 9.1 mg/dL (8.5-10.1); Chloride 103 mmol/L (98-107); Creatinine, Serum 1.09 mg/dL (0.70-1.30); EST Glomerular Filtration Rate 71 mL/min (>60); Est Glom Filt Rate - Afr Amer 86 mL/min (>60); Estimated Creatinine Clearance 66.04 ml/min; Glucose 147 mg/dL (74-106); Potassium 3.9 mmol/L (3.5-5.1); Sodium Level 136 mmol/L (136-145)
[2024-03-23] MEDS: Ipratropium/Albuterol Sulfate 3 ML AMPUL.NEB INHALATION ×3 (11:11→20:29)
--- NOTE | 2024-03-23 11:26 | PN_ITS ---
Subjective Subjective Patient seen and examined. He still complains of shortness of breath. He is on 3 L of oxygen. Review of systems otherwise negative. He admits to wheezing. Objective Data Objective Data Vital Signs: Vital Signs Temp Pulse Resp BP Pulse Ox O2 Del Method O2 Flow Rate 97.4 F L 88 22 H 125/69 H 95 Nasal Cannula 3 03/23/24 09:05 03/23/24 11:12 03/23/24 11:12 03/23/24 09:05 03/23/24 09:05 03/23/24 09:05 03/23/24 09:05 Oxygen Flow Rate (L/min) 3 Oxygen Delivery Method Nasal Cannula Weight: 189 lb 6.033 oz Body Mass Index (BMI) 27.1 Intake & Output: Intake and Output for Last 24 Hours 03/21/24 03/22/24 03/23/24 23:59 23:59 23:59 Intake Total 3220 / 3220 1000 / 1000 Output Total 600 / 600 Balance 2620 / 2620 1000 / 1000 Lab / Micro Data 03/23/24 08:13 03/23/24 08:13 Labs: Laboratory Results - last 24 hr 03/23/24 08:13: WBC 16.8 H, RBC 5.40, Hgb 15.3, Hct 47.6, MCV 88.1, MCH 28.3, MCHC 32.1, RDW Std Deviation 45.2 H, RDW Coeff of Armand 14.2, Plt Count 252, MPV 10.0, Immature Gran % (Auto) 0.600, Neut % (Auto) 90.2 H, Lymph % (Auto) 4.9 L, [place] % (Auto) 4.1, Eos % (Auto) 0.1, Baso % (Auto) 0.1, Absolute Neuts (auto) 15.2 H, Absolute Lymphs (auto) 0.82 L, Nucleated RBC % 0, Sodium 136, Potassium 3.9, Chloride 103, Carbon Dioxide 26.0, Anion Gap 7, BUN 24 H, Creatinine 1.09, Estim Creat Clear Calc 66.04, Est GFR (MDRD) Af Amer 86, Est GFR (MDRD) Non-Af 71, BUN/Creatinine Ratio 22.0 H, Glucose 147 H, Calcium 9.1 Micro: Microbiology 03/21/24 10:17 Sputum, Expectorated/Coughed Gram Stain - Final 03/21/24 10:17 Sputum, Expectorated/Coughed Respiratory Culture - Final 03/21/24 04:50 Mucosa - Nose Respiratory Panel (PCR) - Final Influenza A (Subtype H3) 03/21/24 00:19 Mucosa - Nose SARS-CoV-2, Influenza & RSV (PCR) - Final Influenzae A Physical Exam Const alert, oriented x3, no apparent distress and well nourished General Appearance: cooperative HEENT normocephalic, head/scalp atraumatic, moist oral mucous membranes and oropharynx normal Eyes PERRL and EOMs intact bilaterally Neck supple and no JVD Lymph Lymphatic: no lymphadenopathy noted and no lymphedema noted Resp Resp Narrative: diminished breath sounds bibasally, few bilateral crackles. Mild wheezing. On 3L of oxygen. Cardio regular rate, regular rhythm, S1 normal heart sound, S2 normal heart sound and no murmurs GI normal to inspection, nondistended, normoactive bowel sounds, soft to palpation, non-tender and non-distended Extremity normal capillary refill, no clubbing, cyanosis or edema and no calf tenderness General Extremity: no tenderness to palpation of joints or extremities Skin General Skin Exam: no breakdown Neuro CN's II-XII intact bilaterally, no focal motor deficits and no sensory deficits noted Motor Exam: strength 5/5 throughout and general weakness Psych thought process normal and cooperative Appearance: appropriate Assessment & Plan Assessment/Plan (1) Influenza A: (2) Hypoxia: PLAN: Plan #Acute hypoxia due to influenza A infection * Patient on 3L of oxygen On breathing treatments bronchodilators. * lung still sound quite tight. * On Tamiflu. Also on IV Solu-Medrol * Titrate oxygen to maintain saturation above 90%. * #Acute COPD exacerbation: As above #Hypertension: On losartan. IV hydralazine as needed. #Nicotine dependence: Counseled to quit. Nicotine patch 21 g daily as needed #Hyperlipidemia: On statin DVT prophylaxis: Lovenox Disposition: for DC home when medically stable. Charges/Coding Visit Charges Inpatient E&M: 30085 Subs Hosp L2
[2024-03-23] MEDS: Atorvastatin Calcium 10 MG Tablet PO (21:09)
[2024-03-23] MEDS: Temazepam 15 MG Capsule PO (21:09)
[2024-03-24] VITALS (10 sets, daily range): BP systolic 118–141; BP diastolic 70–93; PULSE 60–96; RESP 14–20; TEMP 36.3–36.6; O2SAT 77–94; BMI 26.9
[2024-03-24] MEDS: 0.9% Saline Lock 10 ML Syringe IV ×3 (05:02→20:52)
[2024-03-24] MEDS: Ipratropium/Albuterol Sulfate 3 ML AMPUL.NEB INHALATION ×4 (06:59→20:00)
[2024-03-24 07:06] LABS: Absolute Lymphocyte Count 0.65 X10^3/uL (0.83-4.51); Absolute Neutrophil Count 10.2 X10^3/uL (2.0-7.7); Basophil# 0.02 X10^3/uL; Basophil% 0.2 % (0-1); Hematocrit 44.5 % (40-54); Hemoglobin 14.7 g/dL (13.0-16.5); Lymphocyte # 0.65 X10^3/ul (0.83-4.51); Lymphocyte % 5.7 % (19-41); Mean Corpuscular Hgb 28.7 pg (27.0-32.0); Mean Corpuscular Volume 86.7 fL (80-94); Mean Platelet Vol. 9.9 fl (6.2-12.0); Monocyte# 0.41 X10^3/uL; Monocyte% 3.6 % (0-10); NRBC Flagged by Analyzer 0 % (0-5); Platelet Count 238 K/mm3 (150-450); RBC Distribution Width CV 13.8 % (11.6-14.6); RBC Distribution Width SD 44.1 fl (35.1-43.9); Red Blood Count 5.13 M/mm3 (4.6-6.2); White Blood Count 11.3 K/mm3 (4.4-11.0)
[2024-03-24 07:53] LABS: Anion Gap 7 (5-15); BUN 23 mg/dL (7-18); BUN/Creat Ratio 27.3 RATIO (10-20); Calcium,Total 9.1 mg/dL (8.5-10.1); Chloride 101 mmol/L (98-107); Creatinine, Serum 0.84 mg/dL (0.70-1.30); EST Glomerular Filtration Rate 96 mL/min (>60); Est Glom Filt Rate - Afr Amer 116 mL/min (>60); Glucose 170 mg/dL (74-106); Potassium 4.1 mmol/L (3.5-5.1); Sodium Level 138 mmol/L (136-145)
[2024-03-24] MEDS: Aspirin 81 MG TAB.CHEW PO (08:22)
[2024-03-24] MEDS: Losartan Potassium 100 MG Tablet PO (08:22)
[2024-03-24] MEDS: Enoxaparin 40 MG/0.4 ML Syringe SC (08:22)
[2024-03-24] MEDS: Pantoprazole Sodium 20 MG Tablet PO (08:23)
[2024-03-24] MEDS: Oseltamivir Phosphate 75 MG Capsule PO ×2 (08:24→20:57)
--- NOTE | 2024-03-24 08:30 | CASEMGMT ---
Addendum entered by Mindi Emmanuel 03/24/24 13:11: Pt made aware he is not able to get O2 through the [facility] if he discharges home over the weekend. Pt voices understanding. He states will go ahead and get it from [employer] and have it billed through [facility]. Per Mc @ [employer], she verifies they are in-network w/[facility]. Discussed home O2 set-up process through [facility] and questions answered. He is aware to call [facility] prior to discharge from [facility] to make arrangements for home O2 delivery. Pt states he has an appt Monday 03/27 @ [place] @ 1:30 PM to initiate the process for home O2. Original Note: MIKE GOMEZ NOTE: Per Ani @ [employer] [facility], pt does not qualify for home O2 through the [facility] at this time d/t he is a smoker. She states they will need to do a risk assessment on him first and then will need a pulmonology consult @ the [place]. She states pt will need to be set up with home O2 through another company and insurance. Nabila MACKEY RN CM
--- NOTE | 2024-03-24 13:02 | PN_ITS ---
Subjective Subjective Patient seen and examined. He is still feels short of breath and does not feel like his breathing has improved completely. He is still wheezing and still on 4 L of oxygen. Review of systems otherwise negative. Objective Data Objective Data Vital Signs: Vital Signs Temp Pulse Resp BP Pulse Ox O2 Del Method O2 Flow Rate 97.6 F L 77 20 H 132/70 H 89 Nasal Cannula 4 03/24/24 08:02 03/24/24 08:02 03/24/24 08:02 03/24/24 08:02 03/24/24 08:30 03/24/24 11:36 03/24/24 11:36 Oxygen Flow Rate (L/min) 4 Oxygen Delivery Method Nasal Cannula Weight: 187 lb 13.341 oz Body Mass Index (BMI) 26.9 Intake & Output: Intake and Output for Last 24 Hours 03/22/24 03/23/24 03/24/24 23:59 23:59 23:59 Intake Total 1000 / 1000 720 / 720 Balance 1000 / 1000 720 / 720 Lab / Micro Data 03/24/24 06:34 03/24/24 06:34 Labs: Laboratory Results - last 24 hr 03/24/24 06:34: WBC 11.3 H, RBC 5.13, Hgb 14.7, Hct 44.5, MCV 86.7, MCH 28.7, MCHC 33.0, RDW Std Deviation 44.1 H, RDW Coeff of Armand 13.8, Plt Count 238, MPV 9.9, Immature Gran % (Auto) 0.500, Neut % (Auto) 90.0 H, Lymph % (Auto) 5.7 L, [place] % (Auto) 3.6, Eos % (Auto) 0.0, Baso % (Auto) 0.2, Absolute Neuts (auto) 10.2 H, Absolute Lymphs (auto) 0.65 L, Nucleated RBC % 0, Sodium 138, Potassium 4.1, Chloride 101, Carbon Dioxide 30.0, Anion Gap 7, BUN 23 H, Creatinine 0.84, Estim Creat Clear Calc 85.70, Est GFR (MDRD) Af Amer 116, Est GFR (MDRD) Non-Af 96, BUN/Creatinine Ratio 27.3 H, Glucose 170 H, Calcium 9.1 Micro: Microbiology 03/21/24 10:17 Sputum, Expectorated/Coughed Gram Stain - Final 03/21/24 10:17 Sputum, Expectorated/Coughed Respiratory Culture - Final 03/21/24 04:50 Mucosa - Nose Respiratory Panel (PCR) - Final Influenza A (Subtype H3) 03/21/24 00:19 Mucosa - Nose SARS-CoV-2, Influenza & RSV (PCR) - Final Influenzae A Physical Exam Const alert, oriented x3, no apparent distress and well nourished General Appearance: cooperative and well developed HEENT normocephalic, head/scalp atraumatic, moist oral mucous membranes and oropharynx normal Eyes PERRL and EOMs intact bilaterally Neck supple and no JVD Lymph Lymphatic: no lymphadenopathy noted and no lymphedema noted Resp Resp Narrative: diminished breath sounds bibasally, few bilateral crackles. Lungs still sound very tight. On 4 L of oxygen. Cardio regular rate, regular rhythm, S1 normal heart sound, S2 normal heart sound and no murmurs GI normal to inspection, nondistended, normoactive bowel sounds, soft to palpation, non-tender and non-distended Extremity normal capillary refill, no clubbing, cyanosis or edema and no calf tenderness General Extremity: no tenderness to palpation of joints or extremities Skin General Skin Exam: no breakdown Neuro CN's II-XII intact bilaterally, no focal motor deficits and no sensory deficits noted Motor Exam: strength 5/5 throughout and general weakness Psych thought process normal and cooperative Appearance: appropriate Assessment & Plan Assessment/Plan (1) Influenza A: (2) Hypoxia: PLAN: Plan #Acute hypoxia due to influenza A infection * Patient on 4L of oxygen On breathing treatments bronchodilators. * lung still sound quite tight with wheezing today * On Tamiflu. Also on IV Solu-Medrol * Titrate oxygen to maintain saturation above 90%. * He is in positive balance by 4.34 L. Will therefore diurese with Lasix to see if this helps with his shortness of breath. * #Acute COPD exacerbation: As above #Hypertension: On losartan. IV hydralazine as needed. #Nicotine dependence: Counseled to quit. Nicotine patch 21 g daily as needed #Hyperlipidemia: On statin DVT prophylaxis: Lovenox Disposition: for DC home when medically stable. Charges/Coding Visit Charges Inpatient E&M: 59360 Subs Hosp L2
[2024-03-24] MEDS: Furosemide 40 MG/4 ML Vial IV ×2 (14:31→18:06)
--- NOTE | 2024-03-24 16:13 | NURSING ---
Report given to Romelia*+(Student Nurse) and Carmen RN
[2024-03-24] MEDS: Temazepam 15 MG Capsule PO (20:52)
[2024-03-24] MEDS: Atorvastatin Calcium 10 MG Tablet PO (20:57)
[2024-03-25] VITALS (10 sets, daily range): BP systolic 116–179; BP diastolic 78–110; PULSE 71–129; RESP 16–22; TEMP 36.4–36.9; O2SAT 90–94; BMI 26.2
[2024-03-25 06:57] LABS: Absolute Lymphocyte Count 0.79 X10^3/uL (0.83-4.51); Absolute Neutrophil Count 9.6 X10^3/uL (2.0-7.7); Basophil# 0.02 X10^3/uL; Basophil% 0.2 % (0-1); Hematocrit 47.3 % (40-54); Hemoglobin 15.8 g/dL (13.0-16.5); Lymphocyte # 0.79 X10^3/ul (0.83-4.51); Lymphocyte % 7.1 % (19-41); Mean Corp Hgb Conc 33.4 g/dL (32-36); Mean Corpuscular Hgb 28.8 pg (27.0-32.0); Mean Corpuscular Volume 86.2 fL (80-94); Mean Platelet Vol. 10.5 fl (6.2-12.0); Monocyte% 5.4 % (0-10); NRBC Flagged by Analyzer 0 % (0-5); Neutrophil # 9.58 X10^3/uL (2.7-7.7); Neutrophil % 86.6 % (47-70); Platelet Count 272 K/mm3 (150-450); RBC Distribution Width CV 13.7 % (11.6-14.6); Red Blood Count 5.49 M/mm3 (4.6-6.2); White Blood Count 11.1 K/mm3 (4.4-11.0)
[2024-03-25] MEDS: Ipratropium/Albuterol Sulfate 3 ML AMPUL.NEB INHALATION ×3 (07:14→21:13)
[2024-03-25 07:24] LABS: Anion Gap 11 (5-15); BUN 33 mg/dL (7-18); Calcium,Total 8.7 mg/dL (8.5-10.1); Chloride 97 mmol/L (98-107); Creatinine, Serum 1.18 mg/dL (0.70-1.30); EST Glomerular Filtration Rate 65 mL/min (>60); Est Glom Filt Rate - Afr Amer 79 mL/min (>60); Estimated Creatinine Clearance 61.01 ml/min; Glucose 216 mg/dL (74-106); Potassium 3.6 mmol/L (3.5-5.1); Sodium Level 135 mmol/L (136-145)
--- NOTE | 2024-03-25 08:20 | ECHOD_ITS ---
Version 2 Reason For Study: SOB Procedure This was a 2D Doppler, Color Flow transthoracic echocardiogram. Exam performed portable in patient room. Left Ventricle Normal LV size. Left ventricular systolic function is normal. The left ventricular ejection fraction is 65 %. Stage 1 diastolic dysfunction. No regional wall motion abnormalities noted. Right Ventricle Normal RV size. Normal systolic function. Atria Normal left atrium. Mitral Valve Normal mitral valve. Tricuspid Valve Normal tricuspid valve. Aortic Valve Trisinus/trileaflet aortic valve. Pulmonic Valve Normal pulmonic valve. Great Vessels Normal aortic root. The pulmonary artery is normal size. Inferior vena cava collapse with respiration. Pericardium/Pleural No pericardial effusion. MMode/2D Measurements & Calculations LVIDd: 4.0 cm IVSd: 0.98 cm Ao root diam: 3.3 cm LVIDs: 2.0 cm LVPWd: 0.98 cm RVDd: 3.2 cm FS: 50.5 % _ LAV(MOD-bp): 35.9 ml LVAd ap4: 29.5 cm2 LVAd ap2: 19.7 cm2 LAV(MOD-bp) Indexed: 17.7 ml/m2 LVLd ap4: 8.6 cm LVLd ap2: 7.8 cm LAV(MOD-sp2): 28.6 ml EDV(MOD-sp4): 85.4 ml EDV(MOD- sp2): 42.4 ml LAV(MOD-sp4): 39.7 ml EDV(sp4-el): 86.0 ml EDV(sp2- el): 42.3 ml LVAs ap4: 15.5 cm2 LVAs ap2: 8.8 cm2 LVLs ap4: 7.2 cm LVLs ap2: 6.3 cm ESV(MOD-sp4): 30.6 ml ESV(MOD- sp2): 10.7 ml ESV(sp4-el): 28.5 ml ESV(sp2- el): 10.4 ml EF(MOD-sp4): 64.2 % EF(MOD- sp2): 74.7 % EF(sp4-el): 66.9 % _ SV(MOD-sp4): 54.8 ml SV(MOD-sp2): 31.7 ml SV(sp4- el): 57.5 ml SI(MOD-sp4): 26.9 ml/m2 SI(MOD-sp2): 15.6 ml/m2 _ LA A4 area: 15.7 cm2 LA dimension(2D): 3.5 cm RA A4 area: 16.0 cm2 _ TAPSE: 2.2 cm Time Measurements MV dec time: 0.26 sec Doppler Measurements & Calculations MV E max mathew: 43.1 cm/sec Lat Peak E' Mathew: 13.6 cm/sec Med Peak E' Mathew: 8.2 cm/sec MV A max mathew: 66.9 cm/sec E/E' lat: 3.2 E/E' med: 5.2 MV E/A: 0.65 _ Ao V2 max: 147.1 cm/sec LV V1 max: 95.2 cm/sec MV dec slope: 164.0 cm/sec2 Ao max P.7 mmHg LV V1 max P.6 mmHg _ PA V2 max: 93.5 cm/sec ECHO/Echo Complete Interpretation Summary Normal LV size. Left ventricular systolic function is normal. The left ventricular ejection fraction is 65 %. Stage 1 diastolic dysfunction. Structurally normal valves. Ordering Physician: Daisy Worthington Referring Physician: Lisbet Baker Performed By: Fernanda Leon RDCS
[2024-03-25 09:02] LABS: BNP,B-Type NATRIURETIC PEPTIDE 29.2 pg/mL (0-100)
[2024-03-25] MEDS: Enoxaparin 40 MG/0.4 ML Syringe SC (10:31)
[2024-03-25] MEDS: Losartan Potassium 100 MG Tablet PO (10:31)
[2024-03-25] MEDS: Furosemide 40 MG/4 ML Vial IV ×2 (10:31→17:58)
[2024-03-25] MEDS: Aspirin 81 MG TAB.CHEW PO (10:31)
[2024-03-25] MEDS: Oseltamivir Phosphate 75 MG Capsule PO ×2 (10:32→23:29)
[2024-03-25] MEDS: Pantoprazole Sodium 20 MG Tablet PO (10:35)
--- NOTE | 2024-03-25 11:03 | PN_ITS ---
Subjective Subjective Patient seen and examined. She states he is feeling a bit better today. He had a bowel movement yesterday and says that helped. He is on 3 L of oxygen. He is asking to be discharged tomorrow instead of today because he states the people in his house are also sick. He is on positive balance by 4.88 L. Continue diuresis with IV Lasix. Objective Data Objective Data Vital Signs: Vital Signs Temp Pulse Resp BP Pulse Ox O2 Del Method O2 Flow Rate 97.5 F L 74 18 144/88 H 94 Nasal Cannula 3 03/25/24 10:24 03/25/24 10:24 03/25/24 10:24 03/25/24 10:24 03/25/24 10:24 03/25/24 10:50 03/25/24 10:50 Oxygen Flow Rate (L/min) 3 Oxygen Delivery Method Nasal Cannula Weight: 182 lb 5.156 oz Body Mass Index (BMI) 26.2 Intake & Output: Intake and Output for Last 24 Hours 03/23/24 03/24/24 03/25/24 23:59 23:59 23:59 Intake Total 720 / 720 240 / 240 300 / 300 Balance 720 / 720 240 / 240 300 / 300 Lab / Micro Data 03/25/24 05:44 03/25/24 05:44 Labs: Laboratory Results - last 24 hr 03/25/24 05:44: WBC 11.1 H, RBC 5.49, Hgb 15.8, Hct 47.3, MCV 86.2, MCH 28.8, MCHC 33.4, RDW Std Deviation 43.0, RDW Coeff of Armand 13.7, Plt Count 272, MPV 10.5, Immature Gran % (Auto) 0.700, Neut % (Auto) 86.6 H, Lymph % (Auto) 7.1 L, [place] % (Auto) 5.4, Eos % (Auto) 0.0, Baso % (Auto) 0.2, Absolute Neuts (auto) 9.6 H, Absolute Lymphs (auto) 0.79 L, Nucleated RBC % 0, Sodium 135 L, Potassium 3.6, Chloride 97 L, Carbon Dioxide 27.0, Anion Gap 11, BUN 33 H, Creatinine 1.18, Estim Creat Clear Calc 61.01, Est GFR (MDRD) Af Amer 79, Est GFR (MDRD) Non-Af 65, BUN/Creatinine Ratio 28.0 H, Glucose 216 H, Calcium 8.7, B- Natriuretic Peptide 29.2 Micro: Microbiology 03/21/24 10:17 Sputum, Expectorated/Coughed Gram Stain - Final 03/21/24 10:17 Sputum, Expectorated/Coughed Respiratory Culture - Final 03/21/24 04:50 Mucosa - Nose Respiratory Panel (PCR) - Final Influenza A (Subtype H3) 03/21/24 00:19 Mucosa - Nose SARS-CoV-2, Influenza & RSV (PCR) - Final Influenzae A Physical Exam Const alert, oriented x3 and no apparent distress General Appearance: cooperative and well developed HEENT normocephalic, head/scalp atraumatic, moist oral mucous membranes and oropharynx normal Eyes PERRL and EOMs intact bilaterally Neck supple and no JVD Lymph Lymphatic: no lymphadenopathy noted and no lymphedema noted Resp Resp Narrative: diminished breath sounds bibasally, few bilateral crackles. Lungs sound less tight today. On 3L of oxygen by nasal canula Cardio regular rate, regular rhythm, S1 normal heart sound, S2 normal heart sound and no murmurs GI normal to inspection, nondistended, normoactive bowel sounds, soft to palpation, non-tender and non-distended Extremity normal capillary refill, no clubbing, cyanosis or edema and no calf tenderness General Extremity: no tenderness to palpation of joints or extremities Skin General Skin Exam: no breakdown Neuro CN's II-XII intact bilaterally, no focal motor deficits and no sensory deficits noted Motor Exam: strength 5/5 throughout and general weakness Psych thought process normal and cooperative Appearance: appropriate Assessment & Plan Assessment/Plan (1) Influenza A: (2) Hypoxia: PLAN: Plan #Acute hypoxia due to influenza A infection * Patient on 3L of oxygen On breathing treatments bronchodilators. * lung still sound quite tight with wheezing today * On Tamiflu. Also on IV Solu-Medrol * Titrate oxygen to maintain saturation above 90%. * Still in positive balance by 4.8 L. However his weight has gone down from 191 pounds on admission to 182 pounds. Will continue with diuresis. Will get 2D echo also to evaluate cardiac function. BNP is not elevated and is only 29.2 * #Acute COPD exacerbation: As above #Hypertension: On losartan. IV hydralazine as needed. #Nicotine dependence: Counseled to quit. Nicotine patch 21 g daily as needed #Hyperlipidemia: On statin DVT prophylaxis: Lovenox Disposition: for DC home when medically stable. Patient requesting to be discharged home tomorrow as he says the people in his house are also sick and he would want to go home tomorrow. Charges/Coding Visit Charges Inpatient E&M: 58315 Subs Hosp L2
--- NOTE | 2024-03-25 11:25 | CPS ---
Walked pt in [place] from his room throughout the whole outside hallway and back to his room on 2lpm O2 via tank. when we got to his door, His SpO2 was 86%. I sat him down in the chair and gave his aerosol on oxygen. Pt's breathing is back to baseline and p-ox back in the 90's on 2lpm O2.
[2024-03-25] MEDS: 0.9% Saline Lock 10 ML Syringe IV (17:58)
[2024-03-25] MEDS: guaiFENesin 10 ML UDC (200MG/10ML) PO (21:18)
[2024-03-25] MEDS: Atorvastatin Calcium 10 MG Tablet PO (23:29)
[2024-03-26] VITALS (12 sets, daily range): BP systolic 117–126; BP diastolic 58–79; PULSE 60–90; RESP 16–22; TEMP 36.2–36.6; O2SAT 91–94; BMI 26.2
[2024-03-26] MEDS: Temazepam 15 MG Capsule PO ×2 (00:44→21:09)
[2024-03-26] MEDS: guaiFENesin 10 ML UDC (200MG/10ML) PO ×4 (01:18→18:30)
[2024-03-26] MEDS: BENZOCAINE/MENTHOL 1 LOZENGE MUCOUS MEM ×3 (02:20→12:59)
[2024-03-26 06:51] LABS: Absolute Lymphocyte Count 0.92 X10^3/uL (0.83-4.51); Absolute Neutrophil Count 12.3 X10^3/uL (2.0-7.7); Basophil# 0.07 X10^3/uL; Basophil% 0.5 % (0-1); Hemoglobin 16.3 g/dL (13.0-16.5); Lymphocyte # 0.92 X10^3/ul (0.83-4.51); Lymphocyte % 6.3 % (19-41); Mean Corpuscular Hgb 29.2 pg (27.0-32.0); Mean Platelet Vol. 10.3 fl (6.2-12.0); Monocyte# 1.03 X10^3/uL; Monocyte% 7.1 % (0-10); NRBC Flagged by Analyzer 0 % (0-5); Neutrophil % 84.9 % (47-70); Platelet Count 284 K/mm3 (150-450); RBC Distribution Width CV 13.6 % (11.6-14.6); RBC Distribution Width SD 42.3 fl (35.1-43.9); Red Blood Count 5.58 M/mm3 (4.6-6.2); White Blood Count 14.5 K/mm3 (4.4-11.0)
[2024-03-26] MEDS: Ipratropium/Albuterol Sulfate 3 ML AMPUL.NEB INHALATION ×3 (07:05→19:46)
[2024-03-26 07:20] LABS: Anion Gap 11 (5-15); BUN 51 mg/dL (7-18); BUN/Creat Ratio 37.2 RATIO (10-20); Calcium,Total 8.6 mg/dL (8.5-10.1); Chloride 95 mmol/L (98-107); Creatinine, Serum 1.37 mg/dL (0.70-1.30); EST Glomerular Filtration Rate 55 mL/min (>60); Est Glom Filt Rate - Afr Amer 66 mL/min (>60); Estimated Creatinine Clearance 52.54 ml/min; Glucose 199 mg/dL (74-106); Potassium 3.6 mmol/L (3.5-5.1); Sodium Level 134 mmol/L (136-145)
[2024-03-26] MEDS: Aspirin 81 MG TAB.CHEW PO (07:47)
--- NOTE | 2024-03-26 09:42 | CT_ITS ---
PROCEDURE: CTA CHEST W/WO CONTRAST REASON FOR EXAM: Short of breath TECHNIQUE: CTA imaging of the chest with intravenous contrast. 3D reconstructions. COMPARISON: 2021 FINDINGS: Hardware: None. Lymph nodes: No mediastinal hilar or axillary lymphadenopathy. Heart: Normal heart size. No pericardial effusion. RV/LV Diameter Ratio: N/A Thoracic Aorta: No thoracic aortic aneurysm or dissection. Pulmonary Vessels: No evidence of acute pulmonary emboli through the major subsegmental branches. Most Proximal Level of Embolus (if embolus present): N/A Patchy reticulonodular airspace opacities throughout with a relatively bibasilar predominance. 8 mm solid nodule in the right middle lobe. Centrilobular emphysematous changes moderate in severity. Upper Abdomen: Visualized portions of the upper abdominal viscera are unremarkable. Bones: Bone windows are unremarkable. CT/CTA Chest W/WO Contrast IMPRESSION: No acute thromboembolic disease. New reticulonodular airspace opacities throughout the bilateral lung bazzi wit h a bibasilar predominance. Clinical and imaging surveillance is advised. Stable solid nodule in the right upper lobe when compared to CT exam from 2021 in a background of emphysematous change. This is benign. One or more dose reduction techniques were used (e.g., Automated exposure contr ol, adjustment of the mA and/or kV according to patient size, use of iterative reconstruction technique). Reading Location: [facility]
--- NOTE | 2024-03-26 09:44 | PN_ITS ---
Subjective Subjective Patient seen and examined. He still complains of shortness of breath and says he feels worse than yesterday. I had hoped to discharge him today but patient says his shortness of breath is much worse. He is on 4 L of oxygen but says he feels like he is not getting any sputum up and feels like his lungs are very tight. Review of systems otherwise negative. Objective Data Objective Data Vital Signs: Vital Signs Temp Pulse Resp BP Pulse Ox O2 Del Method O2 Flow Rate 97.2 F L 90 22 H 117/72 93 Nasal Cannula 4 03/26/24 05:28 03/26/24 07:42 03/26/24 07:05 03/26/24 05:28 03/26/24 07:05 03/26/24 07:42 03/26/24 07:42 Oxygen Flow Rate (L/min) 4 Oxygen Delivery Method Nasal Cannula Weight: 182 lb 15.739 oz Body Mass Index (BMI) 26.2 Intake & Output: Intake and Output for Last 24 Hours 03/24/24 03/25/24 03/26/24 23:59 23:59 23:59 Intake Total 240 / 240 300 / 600 300 / 300 Balance 240 / 240 300 / 600 300 / 300 Lab / Micro Data 03/26/24 05:24 03/26/24 05:24 Labs: Laboratory Results - last 24 hr 03/26/24 05:24: WBC 14.5 H, RBC 5.58, Hgb 16.3, Hct 48.0, MCV 86.0, MCH 29.2, MCHC 34.0, RDW Std Deviation 42.3, RDW Coeff of Armand 13.6, Plt Count 284, MPV 10.3, Immature Gran % (Auto) 1.200 H, Neut % (Auto) 84.9 H, Lymph % (Auto) 6.3 L , [place] % (Auto) 7.1, Eos % (Auto) 0.0, Baso % (Auto) 0.5, Absolute Neuts (auto) 12.3 H, Absolute Lymphs (auto) 0.92, Nucleated RBC % 0, Sodium 134 L, Potassium 3.6, Chloride 95 L, Carbon Dioxide 28.0, Anion Gap 11, BUN 51 H, Creatinine 1.37 H, Estim Creat Clear Calc 52.54, Est GFR (MDRD) Af Amer 66, Est GFR (MDRD) Non- Af 55 L, BUN/Creatinine Ratio 37.2 H, Glucose 199 H, Calcium 8.6 Micro: Microbiology 03/21/24 10:17 Sputum, Expectorated/Coughed Gram Stain - Final 03/21/24 10:17 Sputum, Expectorated/Coughed Respiratory Culture - Final 03/21/24 04:50 Mucosa - Nose Respiratory Panel (PCR) - Final Influenza A (Subtype H3) 03/21/24 00:19 Mucosa - Nose SARS-CoV-2, Influenza & RSV (PCR) - Final Influenzae A Physical Exam Const alert, oriented x3 and no apparent distress General Appearance: cooperative HEENT normocephalic, head/scalp atraumatic, moist oral mucous membranes and oropharynx normal Eyes PERRL and EOMs intact bilaterally Neck supple and no JVD Lymph Lymphatic: no lymphadenopathy noted and no lymphedema noted Resp Resp Narrative: diminished breath sounds bibasally, few bilateral crackles. On 4 L of oxygen by nasal canula Cardio regular rate, regular rhythm, S1 normal heart sound, S2 normal heart sound and no murmurs GI normal to inspection, nondistended, normoactive bowel sounds, soft to palpation, non-tender and non-distended Extremity normal capillary refill, no clubbing, cyanosis or edema and no calf tenderness General Extremity: no tenderness to palpation of joints or extremities Skin General Skin Exam: no breakdown Neuro CN's II-XII intact bilaterally, no focal motor deficits and no sensory deficits noted Motor Exam: strength 5/5 throughout and general weakness Psych thought process normal and cooperative Appearance: appropriate Assessment & Plan Assessment/Plan (1) Influenza A: (2) Hypoxia: PLAN: Plan #Acute hypoxia due to influenza A infection * Patient on 4L of oxygen On breathing treatments bronchodilators. * still wheezing * On Tamiflu. Also on IV Solu-Medrol * Titrate oxygen to maintain saturation above 90%. * being diuresed with IV lasix also. 2D echo showed EF of 65% with stage I diastolic dysfunction and no regional wall motion abnormalities noted. * since patient is not improving as expected, I will get a CTA chest and pulmonology consult. He does have a long history of nicotine dependence and was smoking up to a pack of cigarettes right up until he was admitted. This is likely also a major contributory factor to his delayed recovery * Will hold Lasix as his BUN is up to 51 and creatinine is also up to 1.37. * #Acute COPD exacerbation: As above #Hypertension: On losartan. IV hydralazine as needed. #Nicotine dependence: Counseled to quit. Nicotine patch 21 g daily as needed #Hyperlipidemia: On statin DVT prophylaxis: Lovenox Disposition: for DC home when medically stable. Plan as of late discharge patient today but he feels his breathing has worsened. Further workup ordered as above. Charges/Coding Visit Charges Inpatient E&M: 16678 Subs Hosp L2
[2024-03-26] MEDS: Enoxaparin 40 MG/0.4 ML Syringe SC (10:53)
[2024-03-26] MEDS: Losartan Potassium 100 MG Tablet PO (10:54)
[2024-03-26] MEDS: Psyllium 1 PACKET PO (10:54)
[2024-03-26] MEDS: 0.9% Normal Saline (1000mL) 1,000 ML 75 ML IV (11:00)
[2024-03-26] MEDS: Pantoprazole Sodium 20 MG Tablet PO (11:01)
[2024-03-26] MEDS: 0.9% Saline Lock 10 ML Syringe IV ×2 (11:01→13:58)
[2024-03-26] MEDS: Acetaminophen 325 MG Tablet 650 MG PO ×2 (12:59→21:10)
--- NOTE | 2024-03-26 13:09 | PCMCONS.TICU ---
HPI Consult Data Date of Consult: 03/26/24 HPI Narrative Reason for Consultation: persistent cough and dyspnea HPI Narrative: MALIA FERGUSON, is a 68 M who presents 68 yo M with established diagnosis of COPD and ongoing smoking developed an acute illness 1 week ago which progressed to where he was acutely dyspneic and called 911 on March 21, was evaluated and admitted to the hospital with influenza and acute exacerbation of COPD. His physician anticipated DC today but he instead notes progressive worsening of symptoms including dyspnea and cough, thus pulmonary consult requested. He states he uses Breztri and albuterol for home inhalers, has never been hospitalized for COPD previously and does not have home O2. FORMERLY [facility], [facility] Medical History (Updated 03/21/24 @ 04:[address] Attila Singh, DO) Tobacco use Hyperlipidemia Hypertension Sleep apnea COPD (chronic obstructive pulmonary disease) Home Medications ?Medication ?Instructions ?Recorded ?Last Taken ?Type albuterol 90 mcg/actuation aerosol 90 mcg inhalation Q6H PRN 03/21/24 Unknown History inhaler aspirin 81 mg chewable tablet 1 tab PO DAILY 03/21/24 Unknown History budesonide 160 mcg-glycopyr 9 2 inh inhalation BID 03/21/24 Unknown History mcg-formot 4.8 mcg/actuation HFA inhaler (Breztri Aerosphere) guaifenesin 600 mg tablet, 600 mg PO BID PRN cough 03/21/24 Unknown History extended release 12 hr losartan 100 mg tablet (Cozaar) 100 mg PO DAILY 03/21/24 Unknown History omeprazole 20 mg capsule,delayed 20 mg PO DAILY 03/21/24 Unknown History release simvastatin 20 mg tablet 20 mg PO QHS 03/21/24 Unknown History Allergy/AdvReac Type Severity Reaction Status Date / Time No Known Allergies Allergy Verified 03/21/24 01:16 Family History (Updated 03/21/24 @ 04:[address] Lisbet Baker MD) Mother Diabetes Father Alcoholic cirrhosis of liver Alcoholism Surgical History (Updated 03/21/24 @ 04:[address] Lisbet Baker MD) History of skin surgery History of tonsillectomy and adenoidectomy Social History (Updated 03/21/24 @ 04:[address] Lisbet Baker MD) household members: significant other Smoking Status: Current every day smoker tobacco type: cigarettes Smoking packs per day: 1 Smoking cigarettes per day: 20.0 alcohol intake: never substance use type: does not use Objective Data Objective Data Vital Signs: Vital Signs Last response Temperature 36.2 C L 03/26/24 10:52 Temperature Source Oral 03/26/24 10:52 Pulse Rate 80 03/26/24 11:09 Pulse Strength Normal (2+) 03/26/24 13:02 Respiratory Rate 21 H 03/26/24 11:09 Respiratory Effort Short of Breath 03/26/24 07:42 Respiratory Depth Normal 03/26/24 05:36 Respiratory Pattern Tachypnea 03/26/24 05:36 Blood Pressure 122/76 H 03/26/24 10:52 Blood Pressure Mean 91 03/26/24 10:52 Blood Pressure Source Monitor 03/26/24 10:52 Blood Pressure Position Semi-Fowlers 03/26/24 10:52 Blood Pressure Location Left Arm 03/26/24 10:52 Pulse Ox 94 03/26/24 10:52 Oxygen Delivery Method Nasal Cannula 03/26/24 10:52 Oxygen Flow Rate (L/min) 5 03/26/24 10:52 I&O: I&O Last 24 Hours 03/25/24 03/26/24 03/26/24 23:59 11:59 23:59 Intake Total 300 / 300 Balance 300 / 300 I&O: Total Stay 03/21/24 00:02 thru 03/26/24 13:02 Intake Total 5780 Output Total 600 Balance 5180 Current Meds Ordered / Administered: Current meds ordered / Administered Generic Name Dose Route Start Last Admin Trade Name Freq PRN Reason Stop Dose Admin Acetaminophen 650 mg 03/21/24 06:44 03/26/24 12:59 Acetaminophen 325 Mg Tablet PO 650 mg Q4H PRN PRN Administration Fever, pain 1-10 Al Hydroxide/Mg Hydroxide 30 ml 03/21/24 06:44 Mag Hydrox/Al Hydrox/Simeth 30 Ml Udc PO Q6H PRN PRN Gastric Burning Albuterol Sulfate 2.5 mg 03/21/24 06:44 03/23/24 08:44 Albuterol 2.5 Mg/3 Ml Vial.Neb. INHALATION 2.5 mg Q2H PRN PRN Administration Dyspnea, wheezing Albuterol/Ipratropium 3 ml 03/21/24 06:44 03/26/24 11:09 Ipratropium/Albuterol Sulfate 3 Ml Ampul.Neb INHALATION 3 ml Q4HWA.RT RENEA Administration Aspirin 81 mg 03/21/24 08:00 03/26/24 07:47 Aspirin 81 Mg Tab.Chew PO 81 mg BREAKFAST RENEA Administration Atorvastatin Calcium 10 mg 03/21/24 22:00 03/25/24 23:29 Atorvastatin Calcium 10 Mg Tablet PO 10 mg QHS RENEA Administration Enoxaparin Sodium 40 mg 03/21/24 10:00 03/26/24 10:53 Enoxaparin 40 Mg/0.4 Ml Syringe SC 40 mg DAILY RENEA Administration Guaifenesin 10 ml 03/21/24 06:44 03/26/24 12:59 Guaifenesin 10 Ml Udc (200mg/10ml) PO 10 ml Q4H PRN PRN Administration COUGH/CONGESTION Hydralazine HCl 10 mg 03/21/24 06:44 Hydralazine 20 Mg/Ml Vial IV Q4H PRN PRN SBP > 160 Protocol Sodium Chloride 1,000 mls @ 75 mls/hr 03/26/24 10:00 03/26/24 11:00 IV 03/26/24 23:19 75 mls/hr .[id number] RENEA Administration Protocol Losartan Potassium 100 mg 03/21/24 10:00 03/26/24 10:54 Losartan Potassium 100 Mg Tablet PO 100 mg DAILY RENEA Administration Protocol Methylprednisolone 40 mg 03/21/24 08:00 03/26/24 05:29 Methylprednisolone 40 Mg/Ml Vial IV 40 mg Q8 RENEA Administration Nicotine 21 mg 03/21/24 15:05 03/26/24 10:54 Nicotine 21 Mg Patch TD 21 mg DAILY RENEA Administration Ondansetron HCl 4 mg 03/21/24 06:44 Ondansetron 4 Mg/2 Ml Vial IV Q8H PRN PRN NAUSEA/VOMITING Pantoprazole Sodium 20 mg 03/21/24 10:00 03/26/24 11:01 Pantoprazole Sodium 20 Mg Tablet PO 20 mg DAILY RENEA Administration Prochlorperazine Edisylate 5 mg 03/21/24 06:44 Prochlorperazine 10 Mg/2 Ml Vial IV Q4H PRN PRN Breakthrough nausea/vomiting Psyllium Hydrophilic Mucilloid 1 packet 03/23/24 13:20 03/26/24 10:54 Psyllium 1 Packet PO 1 packet DAILY RENEA Administration Senna/Docusate Sodium 2 tablet 03/21/24 06:44 Senna/Docusate Sodium 1 Tablet PO BID PRN PRN Constipation Sodium Chloride 10 - 40 ml 03/21/24 06:37 03/26/24 11:01 0.9% Saline Lock 10 Ml Syringe IV 10 ml UD PRN Administration SALINE FLUSH Temazepam 15 mg 03/21/24 22:00 03/26/24 00:44 Temazepam 15 Mg Capsule PO 15 mg QHS PRN PRN Administration INSOMNIA Throat Lozenges 1 lozenge 03/21/24 06:44 03/26/24 12:59 Benzocaine/Menthol 1 Lozenge MUCOUS MEM 1 lozenge Q2H PRN PRN Administration SORE THROAT Physical Exam Const alert HEENT Mouth: oral and palatal mucosa normal Resp Effort and Inspection: respiratory distress, labored, actively coughing and uses accessory muscles Auscultation: wheezes and bronchial breath sounds Cardio regular rate Lab / Micro Data Attestation: I reviewed the patient's lab results. 03/26/24 05:24 03/26/24 05:24 Labs: Laboratory Results - last 24 hr 03/26/24 05:24: WBC 14.5 H, RBC 5.58, Hgb 16.3, Hct 48.0, MCV 86.0, MCH 29.2, MCHC 34.0, RDW Std Deviation 42.3, RDW Coeff of Armand 13.6, Plt Count 284, MPV 10.3, Immature Gran % (Auto) 1.200 H, Neut % (Auto) 84.9 H, Lymph % (Auto) 6.3 L, [place] % (Auto) 7.1, Eos % (Auto) 0.0, Baso % (Auto) 0.5, Absolute Neuts (auto) 12.3 H, Absolute Lymphs (auto) 0.92, Nucleated RBC % 0, Sodium 134 L, Potassium 3.6, Chloride 95 L, Carbon Dioxide 28.0, Anion Gap 11, BUN 51 H, Creatinine 1.37 H, Estim Creat Clear Calc 52.54, Est GFR (MDRD) Af Amer 66, Est GFR (MDRD) Non-Af 55 L, BUN/Creatinine Ratio 37.2 H, Glucose 199 H, Calcium 8.6 Imaging Radiology Impression Chest CTA 03/26/24 09:42 IMPRESSION: No acute thromboembolic disease. New reticulonodular airspace opacities throughout the bilateral lung bazzi with a bibasilar predominance. Clinical and imaging surveillance is advised. Stable solid nodule in the right upper lobe when compared to CT exam from 2021 in a background of emphysematous change. This is benign. One or more dose reduction techniques were used (e.g., Automated exposure control, adjustment of the mA and/or kV according to patient size, use of iterative reconstruction technique). [facility] Assessment and Plan . Assessment and plan: #acute respiratory distress - multifactorial with components of influenza/ AECOPD and possibly pulmonary infiltrate (though on my review of chest CT I see only minimal nodularity on chest CT- not much pneumonia per se) - I think the bulk of his symptoms are related to bronchospasm/ persisting acute exacerbation - follow up previous sputum studies - same steroids/ bronchodilators Suggest: 1. add Pulmicort to Duonebs 2. cough suppression for symptom relief may be useful Critical Care Time: 60 minutes The entirety of this encounter was done via Telemedicine
[2024-03-26] MEDS: Budesonide Respules 0.5 MG/2 ML AMPUL.NEB. INHALATION (19:46)
[2024-03-26] MEDS: Atorvastatin Calcium 10 MG Tablet PO (21:09)
[2024-03-27] VITALS (9 sets, daily range): BP systolic 115–144; BP diastolic 81–88; PULSE 68–86; RESP 14–20; TEMP 36.3–36.8; O2SAT 86–97; BMI 26.7
[2024-03-27 06:47] LABS: Absolute Lymphocyte Count 0.88 X10^3/uL (0.83-4.51); Absolute Neutrophil Count 9.1 X10^3/uL (2.0-7.7); Basophil# 0.04 X10^3/uL; Basophil% 0.4 % (0-1); Hemoglobin 15.1 g/dL (13.0-16.5); Lymphocyte # 0.88 X10^3/ul (0.83-4.51); Lymphocyte % 7.9 % (19-41); Mean Corp Hgb Conc 32.8 g/dL (32-36); Mean Corpuscular Hgb 28.4 pg (27.0-32.0); Mean Corpuscular Volume 86.5 fL (80-94); Monocyte# 0.93 X10^3/uL; Monocyte% 8.3 % (0-10); NRBC Flagged by Analyzer 0 % (0-5); Neutrophil # 9.06 X10^3/uL (2.7-7.7); Neutrophil % 81.3 % (47-70); Platelet Count 243 K/mm3 (150-450); RBC Distribution Width CV 13.5 % (11.6-14.6); RBC Distribution Width SD 42.4 fl (35.1-43.9); Red Blood Count 5.32 M/mm3 (4.6-6.2); White Blood Count 11.1 K/mm3 (4.4-11.0)
[2024-03-27 07:22] LABS: Anion Gap 7 (5-15); BUN 37 mg/dL (7-18); Calcium,Total 8.6 mg/dL (8.5-10.1); Chloride 101 mmol/L (98-107); EST Glomerular Filtration Rate 79 mL/min (>60); Est Glom Filt Rate - Afr Amer 95 mL/min (>60); Estimated Creatinine Clearance 71.99 ml/min; Glucose 226 mg/dL (74-106); Potassium 4.2 mmol/L (3.5-5.1); Sodium Level 137 mmol/L (136-145)
[2024-03-27] MEDS: Budesonide Respules 0.5 MG/2 ML AMPUL.NEB. INHALATION ×2 (07:32→19:28)
[2024-03-27] MEDS: Ipratropium/Albuterol Sulfate 3 ML AMPUL.NEB INHALATION ×4 (07:32→19:28)
[2024-03-27] MEDS: Losartan Potassium 100 MG Tablet PO (08:31)
[2024-03-27] MEDS: Aspirin 81 MG TAB.CHEW PO (08:31)
[2024-03-27] MEDS: Enoxaparin 40 MG/0.4 ML Syringe SC (08:32)
[2024-03-27] MEDS: Psyllium 1 PACKET PO (08:33)
[2024-03-27] MEDS: levoFLOXacin 750 MG Tablet PO (08:33)
[2024-03-27] MEDS: Pantoprazole Sodium 20 MG Tablet PO (08:37)
--- NOTE | 2024-03-27 11:15 | PCM.PN.INT ---
Assessment & Plan Assessment/Plan (1) COPD (chronic obstructive pulmonary disease): (2) Influenza A: (3) Hypoxia: PLAN: Plan RECOMMENDATIONS: 1. Supplemental oxygen to maintain saturations at or above 90%. 2. Perform walking oximetry study prior to consideration for discharge home. 3. Continue scheduled bronchodilators and steroids. 4. At discharge, transition to prednisone to complete 40 mg daily x 5 days. 5. Continue empiric antibiotics. 6. Encourage incentive spirometer use and mobilize patient as tolerated. 7. Recommend outpatient follow-up with primary image editor after discharge. IMPRESSIONS: 1. COPD exacerbation with hypoxemia Appears to be related to influenza A infection with questionable secondary bacterial pneumonia. At this time, the patient is improving slowly from a clinical perspective. Plan to continue supplemental oxygen to maintain saturations at or above 90%. The patient will be maintained on scheduled bronchodilators and steroids. At discharge, he can be transition to prednisone 40 mg daily to complete a 5-day burst. Recommend performing a walking oximetry study prior to consideration for discharge home. Empiric antibiotics will be continued, pending culture results. 2. Chronic tobacco dependency/hypertension/hyperlipidemia/GERD Complicates care, management, recovery and prognosis. Continue home medications as indicated. This note was generated with [employer] dictation software. It may contain incorrect words, spelling, and punctuation that were not noted in checking the note before signing. Subjective Subjective The patient was seen and examined at the bedside this morning. Events from the last 24 hours have been reviewed. The patient is currently afebrile, hemodynamically stable and maintaining appropriate oxygen saturations on 3 L/min via nasal cannula. The patient does report interval improvement in his breathing quality, but still has a cough that has been intermittently productive of sputum. He has an extensive tobacco abuse history and is currently followed by pulmonary medicine through the [facility] system. The patient remains on scheduled bronchodilators, steroids and Levaquin. Objective Data Objective Data The patient's most recent lab work, culture data and imaging studies have all been personally reviewed. Influenza A PCR was positive on March 21. Sputum culture is pending. Vital Signs: Vital Signs Temp Pulse Resp BP Pulse Ox O2 Del Method O2 Flow Rate 97.3 F L 72 16 115/81 H 91 Nasal Cannula 3 03/27/24 08:10 03/27/24 10:50 03/27/24 10:50 03/27/24 08:10 03/27/24 08:10 03/27/24 10:44 03/27/24 10:44 Oxygen Flow Rate (L/min) 3 Oxygen Delivery Method Nasal Cannula Weight: 186 lb 8.177 oz Body Mass Index (BMI) 26.7 Intake & Output: Intake and Output for Last 24 Hours 03/25/24 03/26/24 03/27/24 23:59 23:59 23:59 Intake Total 300 / 600 300 / 300 1200 / 1200 Balance 300 / 600 300 / 300 1200 / 1200 Lab / Micro Data Attestation: I reviewed the patient's lab results. 03/27/24 05:58 03/27/24 05:58 Labs: Laboratory Results - last 24 hr 03/27/24 05:58: WBC 11.1 H, RBC 5.32, Hgb 15.1, Hct 46.0, MCV 86.5, MCH 28.4, MCHC 32.8, RDW Std Deviation 42.4, RDW Coeff of Armand 13.5, Plt Count 243, MPV 10.0, Immature Gran % (Auto) 2.100 H, Neut % (Auto) 81.3 H, Lymph % (Auto) 7.9 L, [place] % (Auto) 8.3, Eos % (Auto) 0.0, Baso % (Auto) 0.4, Absolute Neuts (auto) 9.1 H, Absolute Lymphs (auto) 0.88, Nucleated RBC % 0, Sodium 137, Potassium 4.2, Chloride 101, Carbon Dioxide 29.0, Anion Gap 7, BUN 37 H, Creatinine 1.00, Estim Creat Clear Calc 71.99, Est GFR (MDRD) Af Amer 95, Est GFR (MDRD) Non-Af 79, BUN/Creatinine Ratio 37.0 H, Glucose 226 H, Calcium 8.6 Micro: Microbiology 03/25/24 21:30 Sputum, Expectorated/Coughed Gram Stain - Final 03/21/24 10:17 Sputum, Expectorated/Coughed Gram Stain - Final 03/21/24 10:17 Sputum, Expectorated/Coughed Respiratory Culture - Final 03/21/24 04:50 Mucosa - Nose Respiratory Panel (PCR) - Final Influenza A (Subtype H3) 03/21/24 00:19 Mucosa - Nose SARS-CoV-2, Influenza & RSV (PCR) - Final Influenzae A Physical Exam Const alert, oriented x3 and no apparent distress General Appearance: cooperative HEENT normocephalic, head/scalp atraumatic and moist oral mucous membranes Eyes PERRL, EOMs intact bilaterally and conjunctivae normal Neck supple General: trachea midline Chest inspection of chest normal Resp normal respiratory effort Auscultation: diminished lung sounds; Negative for rales, rhonchi or wheezes Cardio regular rate and regular rhythm GI normal to inspection, nondistended, normoactive bowel sounds Extremity no clubbing, cyanosis or edema Skin no rashes or lesions noted Neuro CN's II-XII intact bilaterally, moves all extremities and no focal motor deficits Psych cooperative and affect normal Charges/Coding Visit Charges Inpatient E&M: 62438 Subs Hosp L2
--- NOTE | 2024-03-27 12:21 | PN.HOSP_ITS ---
Subjective Subjective Doing well, no issues overnight. Feels better than he did yesterday. Now on 3 L nasal cannula, yesterday is on 5 Objective Data Objective Data Vital Signs: Vital Signs Temp Pulse Resp BP Pulse Ox O2 Del Method O2 Flow Rate 97.3 F L 72 16 115/81 H 91 Nasal Cannula 3 03/27/24 08:10 03/27/24 10:50 03/27/24 10:50 03/27/24 08:10 03/27/24 08:10 03/27/24 10:44 03/27/24 10:44 Oxygen Flow Rate (L/min) 3 Oxygen Delivery Method Nasal Cannula Weight: 186 lb 8.177 oz Body Mass Index (BMI) 26.7 Intake & Output: Intake and Output for Last 24 Hours 03/26/24 03/27/24 03/28/24 03:59 03:59 03:59 Intake Total 600 / 600 1200 / 1200 Balance 600 / 600 1200 / 1200 Lab / Micro Data 03/27/24 05:58 03/27/24 05:58 Labs: Laboratory Results - last 24 hr 03/27/24 05:58: WBC 11.1 H, RBC 5.32, Hgb 15.1, Hct 46.0, MCV 86.5, MCH 28.4, MCHC 32.8, RDW Std Deviation 42.4, RDW Coeff of Armand 13.5, Plt Count 243, MPV 10.0, Immature Gran % (Auto) 2.100 H, Neut % (Auto) 81.3 H, Lymph % (Auto) 7.9 L , [place] % (Auto) 8.3, Eos % (Auto) 0.0, Baso % (Auto) 0.4, Absolute Neuts (auto) 9.1 H, Absolute Lymphs (auto) 0.88, Nucleated RBC % 0, Sodium 137, Potassium 4.2, Chloride 101, Carbon Dioxide 29.0, Anion Gap 7, BUN 37 H, Creatinine 1.00, Estim Creat Clear Calc 71.99, Est GFR (MDRD) Af Amer 95, Est GFR (MDRD) Non-Af 79, BUN/Creatinine Ratio 37.0 H, Glucose 226 H, Calcium 8.6 Micro: Microbiology 03/25/24 21:30 Sputum, Expectorated/Coughed Gram Stain - Final 03/21/24 10:17 Sputum, Expectorated/Coughed Gram Stain - Final 03/21/24 10:17 Sputum, Expectorated/Coughed Respiratory Culture - Final 03/21/24 04:50 Mucosa - Nose Respiratory Panel (PCR) - Final Influenza A (Subtype H3) 03/21/24 00:19 Mucosa - Nose SARS-CoV-2, Influenza & RSV (PCR) - Final Influenzae A Physical Exam Narrative General: Alert, Oriented x3, Cooperative, No apparent distress HEENT: Atraumatic, PERRLA, EOMI, Normocephalic Oral: Moist Mucosa Neck: Supple, No JVD Lungs: Diminished, Normal air movement, No rhonchi, No wheeze, No rales Cardiovascular: Regular rate, Regular Rhythm, Normal S1, Normal S2, No murmurs Abdomen: Soft, Non Tender, Non-Distended, No Hepato-splenomegaly Extremities: No edema, Capillary Refill Less than 3 Seconds Skin: No rashes, No breakdown Musculoskeletal: No Tenderness to Palpation of Joints or Extremities Neurological: No focal neurological deficits, Motor Exam 5/5 strength throughout, Sensory exam intact to light touch and pain Psych/Mental Status: Normal Affect, Appropriate Assessment & Plan Assessment/Plan (1) Influenza A: (2) Hypoxia: PLAN: Plan 1. Acute hypoxia due to influenza A infection with possible superimposed bacterial pneumonia in the setting of COPD exacerbation ? Will start him on Levaquin today ? CTA of the chest yesterday demonstrated new bilateral basilar opacities ? Continue with steroids and Tamiflu ? Ambulatory pulse ox 2. Essential HTN/HLD ? Blood pressure stable ? Can continue with his home blood pressure medications ? Continue with simvastatin ? Will monitor make adjustments as necessary 3. GERD ? Stable ? Continue with PPI DVT prophylaxis: Lovenox Charges/Coding Visit Charges Inpatient E&M: 82049 Subs Hosp L2
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
[2024-03-27] MEDS: Atorvastatin Calcium 10 MG Tablet PO (21:26)
[2024-03-28] VITALS (7 sets, daily range): BP systolic 131–151; BP diastolic 84–95; PULSE 77–94; RESP 14–26; TEMP 36.3–36.6; O2SAT 88–96; BMI 26.8
[2024-03-28] MEDS: Acetaminophen 325 MG Tablet 650 MG PO ×2 (00:19→14:28)
[2024-03-28 06:34] LABS: Hematocrit 41.4 % (40-54); Hemoglobin 14.2 g/dL (13.0-16.5); Mean Corp Hgb Conc 34.3 g/dL (32-36); Mean Corpuscular Hgb 29.1 pg (27.0-32.0); Mean Corpuscular Volume 84.8 fL (80-94); POSITIVE COUNT YES; POSITIVE MORPHOLOGY YES; Platelet Count 232 K/mm3 (150-450); RBC Distribution Width CV 13.6 % (11.6-14.6); RBC Distribution Width SD 42.2 fl (35.1-43.9); Red Blood Count 4.88 M/mm3 (4.6-6.2); White Blood Count 10.8 K/mm3 (4.4-11.0)
[2024-03-28] MEDS: levoFLOXacin 750 MG Tablet PO (07:02)
[2024-03-28] MEDS: 0.9% Saline Lock 10 ML Syringe IV (07:02)
[2024-03-28 07:04] LABS: Anion Gap 5 (5-15); BUN 30 mg/dL (7-18); BUN/Creat Ratio 35.5 RATIO (10-20); Calcium,Total 8.4 mg/dL (8.5-10.1); Chloride 102 mmol/L (98-107); Creatinine, Serum 0.84 mg/dL (0.70-1.30); EST Glomerular Filtration Rate 96 mL/min (>60); Est Glom Filt Rate - Afr Amer 116 mL/min (>60); Glucose 218 mg/dL (74-106); Potassium 4.2 mmol/L (3.5-5.1); Sodium Level 136 mmol/L (136-145)
[2024-03-28 07:12] LABS: Differential Indicated MANUAL DIFF
[2024-03-28] MEDS: Ipratropium/Albuterol Sulfate 3 ML AMPUL.NEB INHALATION ×2 (07:59→11:24)
[2024-03-28] MEDS: Budesonide Respules 0.5 MG/2 ML AMPUL.NEB. INHALATION (07:59)
[2024-03-28] MEDS: Aspirin 81 MG TAB.CHEW PO (08:25)
[2024-03-28 09:11] LABS: Lymphocyte 5 % (19-41); Metamyelocyte 1 % (0-1); Monocyte 6 % (0-10); Myelocyte 2 % (0-0); Neutrophil-Segmented 86 % (47-70); Total Cells Counted 100 (MANUAL DIFF)
[2024-03-28 09:13] LABS: Absolute Neutrophil Count 9.3 X10^3/uL (2.0-7.7)
--- NOTE | 2024-03-28 09:31 | CASEMGMT ---
Pt qualifies for home oxygen and was tested early this morning. [place] [facility] [place] [facility] at this time.
--- NOTE | 2024-03-28 10:31 | DCINST_ITS ---
Discharge Instructions Diet Discharge Diet: Low fat / Low cholesterol DC O2, CPAP, BIPAP needs RN Home O2 Qualification: Home O2 Qualification: Is the patient on home oxygen No 03/28/24 03:40 Home O2 Qualification: AT REST 1- Pulse Ox at rest 88 03/28/24 03:40 2- Pulse Ox at rest 93 03/28/24 03:40 2- Oxygen Flow Rate at rest 2 03/28/24 03:40 Home O2 Qualification: WITH AMBULATION 1- Pulse Ox with ambulation 92 03/28/24 03:40 1- Oxygen Flow Rate with 3 03/28/24 03:40 ambulation 2- Pulse Ox with ambulation 86 03/27/24 16:12 2- Oxygen Flow Rate with 4 03/27/24 16:12 ambulation 3- Pulse Ox with ambulation 90 03/27/24 16:12 3- Oxygen Flow Rate with 6 03/27/24 16:12 ambulation 3- Stopped test - Unable to No 03/24/24 09:59 obtain pulse ox >89% w/ max oxyg 4- Pulse Ox with ambulation 88 03/24/24 09:59 4- Oxygen Flow Rate with 4 03/24/24 09:59 ambulation Stopped test - Unable to No 03/24/24 09:59 obtain pulse ox >89% w/ max oxyg Home O2 Discharge instructions: No Dressing / Incision Discharge Activity: Return to Normal Activity Dressing / Incision Call your doctor if you observe: Fever of 101 or Higher, Shortness of breath, Dizziness, Fainting spells, Swelling in the ankles, Chest pain and Increased palpitations (irregular heartbeat) Follow Up Care Test Results: Test results from this visit will be discussed in further detail at your follow- up appointment, if applicable. Discharge Plan Admission Admit Date/Time: 03/21/24 03:40 Attending Provider: Jcarlos Nielsen Primary Care Provider: [place], [place] Consulting Providers: Lisbet Baker; Jimenez Amato; Nickolas Williamson; Dwaine Pantoja; Artie Winkler; Shahbaz Levine; Scottie Dominique; Dave Guevara; Carissa Juarez; Oj Faulkner; Griffin Higgins; Attila Daniel; Neema Cuadra; Linnea Abreu; Meredith Bentley; Shyam Lange; Adam Mesa; Farzad Triana; Brandyn Jackson; Moon Owen; Salvatore Koch; Neal Fairchild; Darien Foster; Tre Argueta; Daisy Worthington Discharge Orders/Prescriptions Prescriptions: New levofloxacin 750 mg Tablet 750 mg PO DAILY 5 Days Qty: 5 0RF prednisone 10 mg tablet 10 mg PO DAILY Qty: 32 0RF Rx Instructions: Take 4 tablets daily for 3 days then 3 tablets daily for 3 days then 2 tablets daily for 3 days then 1 tablet daily for 3 days then half tablet daily for 4 days Continued losartan [Cozaar] 100 mg tablet 100 mg PO DAILY Breztri Aerosphere 160-9-4.8 mcg/actuation HFA aerosol inhaler 2 inh inhalation BID simvastatin 20 mg tablet 20 mg PO QHS albuterol 90 mcg/actuation aerosol 90 mcg inhalation Q6H PRN omeprazole 20 mg capsule,delayed release(DR/EC) 20 mg PO DAILY aspirin 81 mg tablet,chewable 1 tab PO DAILY guaifenesin 600 mg tablet extended release 12hr 600 mg PO BID PRN (Reason: cough) Referrals / Follow [facility] [Primary Care Provider[facility] - Within 1 Week Disposition Disposition (needs filled in before D/C Order can be placed): Home, Self Care
[2024-03-28] MEDS: Pantoprazole Sodium 20 MG Tablet PO (10:47)
[2024-03-28] MEDS: Losartan Potassium 100 MG Tablet PO (10:47)
--- NOTE | 2024-03-28 11:04 | PCM.PN.BLA ---
Progress Note I have reviewed the oxygen testing, and this patient qualifies for the home equipment and portability. The patient is mobile in the home and the community.
--- NOTE | 2024-03-28 14:29 | NURSING ---
pt met nurse in hallway requesting tylenol and states his ride is waiting at enterance for him. medicated as requested and escorted in wheelchair with home o2 tank by rosario renner
--- NOTE | 2024-03-28 15:28 | PHA.DC.MR.R ---
Pharmacy CT Med Reconciliation Pharmacy Service has performed discharge medication reconciliation for this patient. Medication education papers prepared, patient discharged before I was able to developmental training counselor. Medications reviewed. The patient's discharge medication list was reviewed for discrepancies and discrepancies were resolved. Medications at Discharge Home Medications albuterol 90 mcg/actuation aerosol inhaler 90 mcg inhalation Q6H PRN 03/21/24 aspirin 81 mg chewable tablet 1 tab PO DAILY 03/21/24 budesonide 160 mcg-glycopyr 9 mcg-formot 4.8 mcg/actuation HFA inhaler (Breztri Aerosphere) 2 inh inhalation BID 03/21/24 guaifenesin 600 mg tablet, extended release 12 hr 600 mg PO BID PRN cough 03/21/24 losartan 100 mg tablet (Cozaar) 100 mg PO DAILY 03/21/24 omeprazole 20 mg capsule,delayed release 20 mg PO DAILY 03/21/24 simvastatin 20 mg tablet 20 mg PO QHS 03/21/24 levofloxacin 750 mg tablet 750 mg PO DAILY 5 days #5 tabs 03/28/24 prednisone 10 mg tablet 10 mg PO DAILY #32 tabs 03/28/24
--- NOTE | 2024-03-28 16:45 | PCM.DC.SUM ---
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 Routine Consulting Provider: Intensivists/Pulmonary Med Reason for Consult: hypoxia due to influenza, refractory to treatment EMERGENT Consult: No MD Notified: Yes Date Notified: 03/26/24 Time Notified: 09:42 Method of Notification: tele PCC Reason For Visit: HYPOXIA INFLUENZA A Diagnosis Discharge Diagnosis (1) Influenza A: Status: Acute Code(s): J10.1 - Influenza due to other identified influenza virus with other respiratory manifestations (2) Hypoxia: Status: Acute Code(s): R09.02 - Hypoxemia Medications at Discharge Home Medications albuterol 90 mcg/actuation aerosol inhaler 90 mcg inhalation Q6H PRN 03/21/24 aspirin 81 mg chewable tablet 1 tab PO DAILY 03/21/24 budesonide 160 mcg-glycopyr 9 mcg-formot 4.8 mcg/actuation HFA inhaler (Breztri Aerosphere) 2 inh inhalation BID 03/21/24 guaifenesin 600 mg tablet, extended release 12 hr 600 mg PO BID PRN cough 03/21/24 losartan 100 mg tablet (Cozaar) 100 mg PO DAILY 03/21/24 omeprazole 20 mg capsule,delayed release 20 mg PO DAILY 03/21/24 simvastatin 20 mg tablet 20 mg PO QHS 03/21/24 levofloxacin 750 mg tablet 750 mg PO DAILY 5 days #5 tabs 03/28/24 prednisone 10 mg tablet 10 mg PO DAILY #32 tabs 03/28/24 Hospital Course Operations None Procedures 2-D Echocardiogram Summary of Care Provided Minutes Spent on Discharge: 32 Hospital Course: Per HPI: The patient is a 68-year-old male with past medical history hypertension, hyperlipidemia, JUANY not using PAP therapy, COPD with ongoing tobacco use who presents to the [facility] ED on 03/21/24 with 2 days of progressive fever, chills, headache, fatigue, malaise, body aches, cough and dyspnea as well as wheezing progressively worsening prompting eventual ED evaluation to be cautious. He notes that he has a grandchild who is recently been ill with a similar viral illness. He continues to smoke approximately 1 pack/day cigarette tobacco usage. Workup in the ED included T98.7, heart rate 102, BP 131/77, respiratory rate 26, 88% on room air initially eventually desaturating down to 88% on 3 L improving to 92% on 4 L nasal cannula with most recent repeat vital signs T98.4 Oral, BP 115/83, respiratory rate 16, 92% on 4 L nasal cannula, CBC with WBC 7.5, hemoglobin 15.2, platelet 233 with lymphopenia, BMP with BUN/creatinine 22/1.28, GFR 59, glucose 133, magnesium 1.9, chest x-ray with no acute cardiopulmonary findings, rapid SARS COVID/influenza/RSV with positive influenza A. In the ED patient ministered 1 L normal saline, DuoNeb and albuterol therapies, Tamiflu 75 mg p.o. x 1, Zofran 4 mg IV x 1, morphine 4 mg IV x 1 and Solu-Medrol 125 mg IV x 1. Hospital Course: 1. Acute hypoxia due to influenza A infection with possible superimposed bacterial pneumonia in the setting of COPD exacerbation ? Will start him on Levaquin today ? CTA of the chest yesterday demonstrated new bilateral basilar opacities ? Continue with steroids and Tamiflu ? Ambulatory pulse ox 03/28/2024: He did have an ambulatory pulse ox that demonstrated 2 L need on at rest and 3 L with exertion. He is feeling much better today and I discussed with him the possibility for discharge, he expressed understanding of the risk and benefits of going home and would like to go home today. Will continue with Levaquin at 5 more days as well as a steroid taper on discharge. 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 2. Essential HTN/HLD ? Blood pressure stable ? Can continue with his home blood pressure medications ? Continue with simvastatin ? Will monitor make adjustments as necessary 03/28/2024: Echocardiogram done on 03/25/2024 with normal EF and stage I diastolic dysfunction 3. GERD ? Stable ? Continue with PPI Physical Exam Narrative General: Alert, Oriented x3, Cooperative, No apparent distress HEENT: Atraumatic, PERRLA, EOMI, Normocephalic Oral: Moist Mucosa Neck: Supple, No JVD Lungs: Diminished, Normal air movement, No rhonchi, No wheeze, No rales Cardiovascular: Regular rate, Regular Rhythm, Normal S1, Normal S2, No murmurs Abdomen: Soft, Non Tender, Non-Distended, No Hepato-splenomegaly Extremities: No edema, Capillary Refill Less than 3 Seconds Skin: No rashes, No breakdown Musculoskeletal: No Tenderness to Palpation of Joints or Extremities Neurological: No focal neurological deficits, Motor Exam 5/5 strength throughout, Sensory exam intact to light touch and pain Psych/Mental Status: Normal Affect, Appropriate Weight / BMI Weight Weight: 187 lb 2.759 oz Body Mass Index (BMI) 26.8 ABG / Lab / Microbiology Data 03/28/24 06:06 03/28/24 06:06 Laboratory: Laboratory Results - last 24 hr 03/28/24 06:06: WBC 10.8, RBC 4.88, Hgb 14.2, Hct 41.4, MCV 84.8, MCH 29.1, MCHC 34.3, RDW Std Deviation 42.2, RDW Coeff of Armand 13.6, Plt Count 232, MPV 10.0, Neut % (Auto) Not Reportable, Absolute Neuts (auto) 9.3 H, Absolute Lymphs (auto) 0.50 L, Total Counted 100, Neutrophils % (Manual) 86 H, Lymphocytes % (Manual) 5 L, Monocytes % (Manual) 6, Metamyelocytes % 1, Myelocytes % 2 H, Diff Path Review June, Sodium 136, Potassium 4.2, Chloride 102, Carbon Dioxide 29.0, Anion Gap 5, BUN 30 H, Creatinine 0.84, Estim Creat Clear Calc 85.70, Est GFR (MDRD) Af Amer 116, Est GFR (MDRD) Non-Af 96, BUN/Creatinine Ratio 35.5 H, Glucose 218 H, Calcium 8.4 L Microbiology: Microbiology 03/25/24 21:30 Sputum, Expectorated/Coughed Gram Stain - Final 03/25/24 21:30 Sputum, Expectorated/Coughed Respiratory Culture - Final Haemophilus influenzae 03/21/24 10:17 Sputum, Expectorated/Coughed Gram Stain - Final 03/21/24 10:17 Sputum, Expectorated/Coughed Respiratory Culture - Final 03/21/24 04:50 Mucosa - Nose Respiratory Panel (PCR) - Final Influenza A (Subtype H3) 03/21/24 00:19 Mucosa - Nose SARS-CoV-2, Influenza & RSV (PCR) - Final Influenzae A D/C Instructions Discharge Diet: Low fat / Low cholesterol Call your doctor if you observe: Fever of 101 or Higher, Shortness of breath, Dizziness, Fainting spells, Swelling in the ankles, Chest pain and Increased palpitations (irregular heartbeat) DC O2, CPAP, BIPAP Needs RN Home O2 Qualification: Home O2 Qualification: Is the patient on home oxygen No 03/28/24 03:40 Home O2 Qualification: AT REST 1- Pulse Ox at rest 88 03/28/24 03:40 2- Pulse Ox at rest 93 03/28/24 03:40 2- Oxygen Flow Rate at rest 2 03/28/24 03:40 Home O2 Qualification: WITH AMBULATION 1- Pulse Ox with ambulation 92 03/28/24 03:40 1- Oxygen Flow Rate with 3 03/28/24 03:40 ambulation 2- Pulse Ox with ambulation 86 03/27/24 16:12 2- Oxygen Flow Rate with 4 03/27/24 16:12 ambulation 3- Pulse Ox with ambulation 90 03/27/24 16:12 3- Oxygen Flow Rate with 6 03/27/24 16:12 ambulation 3- Stopped test - Unable to No 03/24/24 09:59 obtain pulse ox >89% w/ max oxyg 4- Pulse Ox with ambulation 88 03/24/24 09:59 4- Oxygen Flow Rate with 4 03/24/24 09:59 ambulation Stopped test - Unable to No 03/24/24 09:59 obtain pulse ox >89% w/ max oxyg Home O2 Discharge instructions: No Meaningful Use Info Meaningful Use Meaningful Use Diagnoses (Choose all that apply): None applicable Ischemic Stroke Statin Dosing Therapy Reference: STATIN DOSE THERAPY REFERENCE: * Patients > 75 years receive moderate or high dose statin therapy. * Patients 75 years or YOUNGER should receive HIGH intensity statin dose unless contraindicated. You will be required to document reason for non-treatment if statin daily dose does not meet guidelines. HIGH DOSE STATIN THERAPY DAILY Atorvastatin > than or = to 40 mg Rosuvastatin > than or = to 20 mg Amlodipine + Atorvastatin > than or = to 2.5/40 mg Ezetimibe + Simvastatin 10/80 mg Simvastatin 80mg Discharge Plan Admission Admit Date/Time: 03/21/24 03:40 Attending Provider: Jcarlos Nielsen Primary Care Provider: [facility],[place] Consulting Providers: Lisbet Baker; Jimenez Amato; Nickolas Williamson; Dwaine Pantoja; Artie Winkler; Shahbaz Levine; Scottie Dominique; Dave Guevara; Carissa Juarez; Oj Faulkner; Griffin Higgins; Attila Daniel; Neema Cuadra; Linnea Abreu; Meredith Bentley; Shyam Lange; Adam Mesa; Farzad Triana; Brandyn Jackson; Moon Owen; Salvatore Koch; Neal Fairchild; Darien Foster; Tre Argueta; Daisy Worthington Discharge Orders/Prescriptions Prescriptions: New levofloxacin 750 mg Tablet 750 mg PO DAILY 5 Days Qty: 5 0RF prednisone 10 mg tablet 10 mg PO DAILY Qty: 32 0RF Rx Instructions: Take 4 tablets daily for 3 days then 3 tablets daily for 3 days then 2 tablets daily for 3 days then 1 tablet daily for 3 days then half tablet daily for 4 days Continued losartan [Cozaar] 100 mg tablet 100 mg PO DAILY Breztri Aerosphere 160-9-4.8 mcg/actuation HFA aerosol inhaler 2 inh inhalation BID simvastatin 20 mg tablet 20 mg PO QHS albuterol 90 mcg/actuation aerosol 90 mcg inhalation Q6H PRN omeprazole 20 mg capsule,delayed release(DR/EC) 20 mg PO DAILY aspirin 81 mg tablet,chewable 1 tab PO DAILY guaifenesin 600 mg tablet extended release 12hr 600 mg PO BID PRN (Reason: cough) Referrals / Follow Up: [facility] [Primary Care Provider] - Within 1 Week Disposition Disposition (needs filled in before D/C Order can be placed): Home, Self Care Charges/Coding Visit Charges Inpatient E&M: 83033 Disch Hosp >30min
[2024-03-29 15:28] LABS: Pathologist Review Reviewed
== END 2024-03-28 14:30 | disposition home or self-care (01) | DRG 194 ==
LOC: ED 04:14 → MS3 04:19 → MS2 03-24 09:14 → MS3 03-24 17:28 → MS2 03-27 07:55
PROVIDERS: Student in an Organized Health Care Education/Training Program; Admitting Provider Family Medicine; Emergency Provider Emergency Medicine; Referring Provider Family Medicine; Visit Provider Family Medicine
DX: J10.1 Influenza due to other identified influenza virus with other respiratory manifestations (principal); J44.1 Chronic obstructive pulmonary disease with (acute) exacerbation; J44.0 Chronic obstructive pulmonary disease with (acute) lower respiratory infection; N18.30 Chronic kidney disease, stage 3 unspecified; I12.9 Hypertensive chronic kidney disease with stage 1 through stage 4 chronic kidney disease, or unspecified chronic kidney disease; J15.9 Unspecified bacterial pneumonia; E78.5 Hyperlipidemia, unspecified; F17.210 Nicotine dependence, cigarettes, uncomplicated; G47.33 Obstructive sleep apnea (adult) (pediatric); R09.02 Hypoxemia; R73.9 Hyperglycemia, unspecified; Z79.82 Long term (current) use of aspirin; Z79.51 Long term (current) use of inhaled steroids; Z79.02 Long term (current) use of antithrombotics/antiplatelets; Z79.899 Other long term (current) drug therapy
CPT/HCPCS: 36415; 71045; 71275; 80048; 80053; 83735; 83880; 84145; 85025; 87070; 87077; 87205; 87631; 87633; 93306; 94640; 94668; 94762; 99252; 99285; Q9967; A4216; G0463; J1940; J2405